=== PATIENT | male | born 1945 | race Caucasian/White ===

== ENCOUNTER 2017-10-24 08:12 | Day surgery (SDC) | payer OTHER ==
[2017-10-24] MEDS ORDERED: MIDAZOLAM 2 MG/2 ML VIAL IVP ONE (08:21)
[2017-10-24] MEDS ORDERED: ATROPINE SULFATE 1 MG/10 ML SYR IVP ONE (08:21)
[2017-10-24] MEDS ORDERED: BENZOCAINE UNIT DOSE SPRAY HURRICAINE MM ONE (08:21)
[2017-10-24] MEDS ORDERED: fentaNYL 100 MCG/2 ML INJ IVP ONE (08:21)
[2017-10-24] MEDS ORDERED: NS 500 ML IV ONE (08:21)
--- NOTE | 2017-10-24 08:38 | CPEKG ---
Heart Rate: 82 RR Interval: 732 QRSD Interval: 80 QT Interval: 376 QTC Interval: 439 QRS [place]: 13 T Wave [place]: 43 EKG Severity - ABNORMAL ECG - EKG Impression: ATRIAL FIBRILLATION, V-RATE 61-99 Electronically Signed By: Dayton Vaughan 24-Oct-2017 10:59:15
[2017-10-24 09:03] LABS: INR 1.48 (0.83-1.16); PROTIME(PATIENT) 18.1 SEC (12.0-15.0)
--- NOTE | 2017-10-24 09:18 | PDANEPAE ---
ANE History of Present Illness 72 yo for enrique/cv ANE Past Medical History - Cardiovascular History Hx Hypertension: Yes Hx Arrhythmias: Yes Hx Chest Pain: Yes Hx Coronary Artery / Peripheral Vascular Disease: Yes - Pulmonary History Hx Sleep Apnea: Yes ANE Review of Systems Review of Systems: - Exercise capacity METS (RN): 3 METS ANE Patient History - Allergies Allergies/Adverse Reactions: No Known Allergies Allergy (Unverified 12/03/13 07:18) - Home Medications Home medications: home medication list seen and reviewed - NPO status NPO Status: no food or drink >8 hours - Anes Hx Anes Hx: slow to awaken from anesthesia - Smoking Hx Smoking Status: Former smoker ANE Labs/Vital Signs - Labs Result Diagrams: 10/24/17 08:45 - Vital Signs Height: 6 ft 2.02 in Weight: 88.5 kg ANE Physical Exam - Airway Neck exam: FROM Mallampati Score: Class 2 Mouth exam: normal dental/mouth exam - Pulmonary Pulmonary: no respiratory distress - Cardiovascular Cardiovascular: regular rate and rhythym - ASA Status ASA Status: III ANE Anesthesia Plan Anesthesia Plan: GA with mask
[2017-10-24] MEDS ORDERED: PROPOFOL 200 MG/20 ML VIAL ONE (09:31)
--- NOTE | 2017-10-24 09:52 | PDHPUP ---
History & Physical Update H&P update statement: This history and physical update is based on an assessment of the patient which was completed after admission or registration (within 24 hours), but prior to the surgery/procedure. H&P update: H&P reviewed & patient examined, no change in patient's condition since H&P completed
--- NOTE | 2017-10-24 10:05 | PDTEE1 ---
MCKAYLA Cardioversion Procedure Procedure: electrical cardioversion Indications: atrial fibrillation Consent: signed and in chart Anticoagulation: other (Pradaxa) Procedural Details: Pads were placed in anterior-posterior position. MCKAYLA probe was advanced and standard images obtained. There is no evidence of left atrial or left atrial appendage thrombus. Synchronized cardioversion attempt #1: 200J Results: normal sinus rhythm Conclusions: successful MCKAYLA cardioversion
--- NOTE | 2017-10-24 10:25 | CPEKG ---
Heart Rate: 70 RR Interval: 857 P-R Interval: 208 QRSD Interval: 78 QT Interval: 400 QTC Interval: 432 P [place]: 34 QRS [place]: -4 T Wave [place]: 54 EKG Severity - NORMAL ECG - EKG Impression: SINUS RHYTHM Electronically Signed By: Dayton Vaughan 24-Oct-2017 10:59:05
--- NOTE | 2017-10-24 14:03 | ECHO ---
[email or web address] [place] [id number] Main: [phone] Fax: Transesophageal Echocardiography Name: FLAKO AYERS MR#: [id number] Study Date: 10/24/2017 Study Time: 09:32 AM Date of : 1945 Age: 72 year(s) Height: ( ) Weight: ( ) BSA: Gender: Male Examination: Indication: Pre Cardioversion Image Quality: Contrast: Requested by: Ricardo Ovalles Heart Rate: Rhythm: BP: / Procedure Staff College Administrator: Marshall Whitten RDCS Reading Physician: Ricardo Ovalles MD Requesting Provider: MCKAYLA Exam Details Conclusions: Limited transesophageal echo in this patient prior to cardioversion. Left atrial appendage is free of thrombus. The patient underwent successful cardioversion. Measurements: Chambers Valvular Assessment AV/MV Valvular Assessment TV/PV Normal Normal Normal Name Value Range Name Value Range Name Value Range Additional Measurements: Findings: Left Ventricle: Normal size left ventricle. No regional wall motion abnormality. Left Atrial Appendage: Good color flow doppler in the left atrial appendage. Mitral Valve: Mild to moderate mitral regurgitation. Exam Comments: Proceeded with successful elective DC cardioversion.. l1n Patient: FLAKO AYERS Study Date: 10/24/2017 Page 1 of 2 09:32 AM (No Signature Object) Patient: FLAKO AYERS Study Date: 10/24/2017 Page 2 of 2 09:32 AM [id number]
== END 2017-10-24 12:07 | disposition home or self-care (01) ==
LOC: FCATH 08:12
PROVIDERS: ATTEND Internal Medicine Cardiovascular Disease
DX: I48.1 Persistent atrial fibrillation (principal); I25.10 Atherosclerotic heart disease of native coronary artery without angina pectoris; E11.9 Type 2 diabetes mellitus without complications; I10 Essential (primary) hypertension; G47.33 Obstructive sleep apnea (adult) (pediatric); E78.00 Pure hypercholesterolemia, unspecified; I77.9 Disorder of arteries and arterioles, unspecified; Z87.891 Personal history of nicotine dependence
CPT/HCPCS: J0461; J2704

== ENCOUNTER → 2017-11-22 | Day surgery (SDC) | payer OTHER ==
[~2017-11-22] MED LIST: LIDOCAINE 1% 300 MG/30 ML SDV SC ONE
--- NOTE | 2017-11-22 14:35 | CPIP ---
[f rep st] INVASIVE CARDIAC PROCEDURE DATE OF PROCEDURE: 11/22/2017 PROCEDURE PERFORMED: [employer] Daniel Confirm implantation. INDICATION: The patient is 72 years old. He has a history of paroxysmal atrial fibrillation and rec ently has suffered several syncopal events. He is referred for implantation of a [facility] Daniel Confirm to help elucidate the etiology for his episodes of syncope. TECHNIQUE: Following informed consent and in the fasting state, the patient was brought to the CVC. He was prepped and draped in usual sterile fashion. The 4th intercostal space to the left of the st ernum was identified by landmarks. This was infiltrated with 2% lidocaine. Using a 15 blade, a 1 cm incision was made. The [facility] Daniel Confirm was then "injected" underneath the skin. Manual pressure w as used for hemostasis and 2 yvrose were used to close the skin. COMPLICATIONS: None. DISPOSITION: The patient will be recovered in the CVC and discharged home later today. He will foll ow up with me in the office next week to have his yvrose removed. /[id number]/MODL
== END | disposition home or self-care (01) ==
LOC: FCATH 10:33
PROVIDERS: ATTEND Internal Medicine Cardiovascular Disease
PROC: 0JH602Z Insertion of Monitoring Device into Chest Subcutaneous Tissue and Fascia, Open Approach (ICD-10-PCS; principal; 2017-11-22)
DX: R55 Syncope and collapse (principal); I48.0 Paroxysmal atrial fibrillation; I25.10 Atherosclerotic heart disease of native coronary artery without angina pectoris; I10 Essential (primary) hypertension; G47.33 Obstructive sleep apnea (adult) (pediatric); E78.00 Pure hypercholesterolemia, unspecified; E11.9 Type 2 diabetes mellitus without complications; Z99.81 Dependence on supplemental oxygen; Z85.46 Personal history of malignant neoplasm of prostate
CPT/HCPCS: C1764

== ENCOUNTER 2018-07-16 07:53 | Observation (INO) | payer OTHER ==
[2018-07-16] MEDS ORDERED: NS 1,000 ML IV ONE (07:56)
[2018-07-16] MEDS ORDERED: ceFAZolin 2 GM/DEXTROSE 100 ML IV ONE (07:56)
[2018-07-16] MEDS ORDERED: BACITRACIN IRRIGATION/NS 50,000 UNITS/1,000 ML BTL IRR ONE (07:56)
[2018-07-16 08:56] LABS: PLATELET COUNT 211 10^3/uL (150-400)
[2018-07-16 09:06] LABS: INR 1.08 (0.83-1.16); PROTIME(PATIENT) 14.2 SEC (12.0-15.0)
--- NOTE | 2018-07-16 09:33 | PDPROPOC ---
Sedation Plan of Care Sedation Plan of Care: vital signs stable, mental status noted, patient educated of risks, benefits, alternatives, patient can tolerate sedation ASA Classification: ASA 2 Planned drugs: fentanyl, midazolam Mallampati Score: Class 2 Mallampati Reference Image: Patient passed 3-3-2 rule?: Yes
[2018-07-16] MEDS ORDERED: IOPAMIDOL (ISOVUE-300) 50 ML VIAL ONE (09:43)
[2018-07-16] MEDS ORDERED: LIDOCAINE 1% 300 MG/30 ML SDV ONE (09:43)
[2018-07-16] MEDS ORDERED: LIDO/EPI 1% **for epidural** 30 ML SDV ONE (09:44)
[2018-07-16] MEDS ORDERED: fentaNYL 100 MCG/2 ML INJ ONE ×2 (09:44→09:50)
[2018-07-16] MEDS ORDERED: MIDAZOLAM 2 MG/2 ML VIAL ONE ×2 (09:44→09:50)
[2018-07-16] MEDS ORDERED: BUPIVACAINE 0.5% 30 ML SDV ONE (09:44)
--- NOTE | 2018-07-16 10:53 | SUROPNOTE ---
[facility] Operative Report - Surgery PERMANENT PACER IMPLANTATION PROCEDURE PERFORMED: (1) Fluoroscopy (2) PPM implant (3) Confirm explant COMPLICATIONS: None ESTIMATED BLOOD LOSS: <20 cc SITE: LEFT/RIGHT subclavian vein access. INDICATION: Symptomatic bradycardia with episodes of syncope PROCEDURE: The risks, benefits, and alternative of the procedure were all discussed with the patient and the patient's family in detail at great length. Overall options and precautions of the pacemaker and indications were all discussed. They agreed to the pacemaker. The consent was signed and placed in the chart. The patient was taken to the Cardiac Catheterization Lab, where she was monitored throughout the whole procedure. The patient was sterilely prepped and draped in the usual manner for permanent pacemaker insertion. Using a lidocaine the area of the LEFT subclavian vein and left pectodeltoid region was anesthetized locally. IV sedation, increments, and analgesics were given. Using a #18 gauge needle, the left subclavian vein access was cannulated without difficulty. A guidewire was then passed through the Cook needle and the Cook needle was then removed. The wire was secured in place with the hemostat. A second needle and cannulation was performed with a second guidewire was then passed through the Cook needle with removal of the Cook needle, and securing of the wire in place with the primary wire. Using a #10 and #15 scalpel blade, a 5 cm horizontal incision was made in the left pectoral deltoid region where the skin was dissected and blunted down into the pectoris major muscle fascia. The skin was then undermined used to make a pocket for the pacemaker. The guidewires were then tunneled through to the pacer pocket. Cordis sheath was then inserted through the guidewire. The guidewire and dilator were removed. A 7F cordis sheath was used for insertion of the ventricular screw and steroid diluted lead under fluoroscopy. It was placed into the septum/apex. The cordis sheath was then split apart and removed and after the ventricular lead was placed in its appropriate position and good thresholds were obtained, the lead was then sutured in place with #1-0 silk suture to the pectoris major muscle. The second Cordis sheath was then inserted through a guidewire. The guidewire and dilator were removed. The 7F cordis sheath used for the insertion of the atrial screw and steroid diluted lead under fluoroscopy. It was placed into the right atrium. The cordis sheath was then split apart and revoved and after the atrial lead was placed in its appropriate position and good thresholds were obtained, the lead was then sutured in place with #1-0 silk suture to the pectoris major muscle. The lead was then connected on pulse generator. The pocket was then irrigated and cleansed. Pulse generator and the wire was then inserted into the pocket, and sutured into position. The deep pocket (initial suture) was then closed with #2-0 suture. An intermediate, running suture (#3-0 ) was placed, and finally, the skin was closed with #4-0 sutures using a subcuticular uninterrupted technique. The area was then cleansed and dried. Steri-Strips and pressure dressing was then applied. The patient tolerated the procedure well. There were no complications. Settings on the pacemaker: DDDR 60/130 IMPLANT DEVICE: Favim MRI 2272 Pacemaker VENTRICLE LEAD: SJM Tendril STS 2088TC/58 S#[id number] Capture: 0.2V @ 0.5 ms, 0.4 mA; 8.3 mV, 2.1 V/s; Imp: 611 ohms ATRIAL LEAD: SJM Tendril STS 2088TC/52 S#[id number] Capture: 1.3V @ 0.5 ms, 0.0 mA; 1.5 mV, 0.5 V/s; Imp: 519 ohms The patient tolerated the procedure well. There was no complications. The patient went to recovery in stable condition. Chest x-ray will be ordered. Thank you for allowing me to participate in her care. If you have any questions or concerns, please feel free to contact
--- NOTE | 2018-07-16 12:05 | CPEKG ---
Test Reason : OPEN Blood Pressure : / mmHG Vent. Rate : 078 BPM Atrial Rate : 079 BPM P-R Int : 253 ms QRS Dur : 086 ms QT Int : 373 ms P-R-T Axes : 072 030 065 degrees QTc Int : 425 ms Sinus rhythm Prolonged ME interval Confirmed by Vel Parker ([id number]) on 07/16/2018 12:05:32 PM Referred By: Confirmed By:Vel Parker
--- NOTE | 2018-07-16 12:29 | CPEKG ---
Test Reason : OPEN Blood Pressure : / mmHG Vent. Rate : 069 BPM Atrial Rate : 069 BPM P-R Int : 257 ms QRS Dur : 090 ms QT Int : 398 ms P-R-T Axes : 045 004 045 degrees QTc Int : 427 ms Sinus rhythm Prolonged MN interval Confirmed by Vel Parker ([id number]) on 07/16/2018 12:29:10 PM Referred By: Confirmed By:Vel Parker
[2018-07-16] MEDS: CARVEDILOL 6.25 MG TAB PO SCH (17:57)
--- NOTE | 2018-07-16 20:43 | GCON ---
INTERNAL MEDICINE CONSULTATION DATE OF CONSULTATION: 07/16/2018 REFERRING PHYSICIAN: Wesley Sanders MD REASON FOR CONSULTATION: Medical opinion regarding medical issues status post pacemaker placement. HISTORY OF PRESENT ILLNESS: The patient is a 72-year-old male with a history of symptomatic bradycar ricki with syncope and had a pacemaker placed by Dr. Sanders today. The patient reports having syncopal episodes 3 times in the last year. He had a LINQ monitor placed last . He had another even t, and the LINQ monitor showed significant bradycardia, so he is now presenting for pacemaker. He de scribes the syncopal events as being very sudden onset, he will go from just standing feeling complet kecia normal to being collapsed and passed out on the ground. There was no significant injury. He is currently post pacemaker doing well without any complaints. He denies any chest pain or shortness of breath. PAST MEDICAL HISTORY: 1. Atrial fibrillation. 2. Hypertension. 3. Obstructive sleep apnea, CPAP intolerance. 4. Nonobstructive coronary artery disease. 5. Hyperlipidemia. 6. Diabetes type 2. 7. Hoskins's esophagus. 8. Congestive heart failure secondary to diastolic dysfunction. 9. Prostate cancer status post prostatectomy. PAST SURGICAL HISTORY: Cholecystectomy. MEDICATIONS: Please see computer record for full detailed list. ALLERGIES: No known drug allergies. SOCIAL HISTORY: Quit smoking 20 years ago. 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 He lives with his . He is retired from [employer]. REVIEW OF SYSTEMS: Complete review of systems obtained. Review of systems negative regarding consti tutional, HEENT, GI, pulmonary, cardiovascular, , hematology, endocrine, psych, except for positive s as in HPI. FAMILY HISTORY: Reviewed, noncontributory to presenting complaint. PHYSICAL EXAMINATION: GENERAL APPEARANCE: Well-developed, well-nourished male, in no acute distress . VITAL SIGNS: Temperature is 36.6, pulse 67, blood pressure 160/86, saturating 93% on room air. E YES: Normal conjunctivae. Pupils reactive to light. ENT: Normal ears, nose. Hearing intact. Nor mal teeth. Oropharynx moist. NECK: Trachea midline. No thyromegaly. CHEST: Normal respiratory e ffort. Lungs clear to auscultation bilaterally. CARDIOVASCULAR: Regular rhythm. No murmur. No ex tremity edema. ABDOMEN: Soft, nontender. No hepatosplenomegaly. SKIN: Warm, dry, intact. No beatriz h. MUSCULOSKELETAL: No cyanosis or clubbing. Strength 5/5 upper and lower extremities. NEUROLOGIC : Cranial nerves intact. Normal sensation to light touch. PSYCHIATRIC: Alert and oriented x3. No rmal affect. Normal judgment. Normal insight. Normal memory. DIAGNOSTIC DATA: White count 8.27, hematocrit 32.4, platelets 211, MCV is 67.8. Sodium 140, potassi um 4.4, chloride 104, bicarbonate 25, BUN 14, creatinine 1.0, glucose 141. LFTs are negative. INR i s 1.08. EKG viewed by me and my personal interpretation is normal sinus rhythm with prolonged CO. C hest x-ray shows pacemaker in place. There is a widened upper mediastinum. MEDICAL RECORD REVIEW: I reviewed old medical records including previous outpatient records from the cardiology office. They were summarized above. ASSESSMENT AND PLAN: 1. Symptomatic bradycardia status post pacemaker. He will be observed this evening and if all remai ns stable could go home tomorrow morning per Cardiology. 2. Anemia. He says this was recently discovered by his primary care only about a week ago, and he h as not yet received outpatient evaluation. I will check iron studies in the morning. He is up to da td on colonoscopy having his last colonoscopy February of this year. He also has a history of Hoskins's and is on a proton pump inhibitor. He reports his last esophagogastroduodenoscopy was 2 years ago. His primary care doctor has told him he will likely refer him back to Gastroenterology. 3. Widened mediastinum. PA and lateral chest x-ray is pending. Could consider CT scan of the chest if there is further concern. 4. Diabetes type 2. Continue metformin. 5. Obstructive sleep apnea. He is continuous positive airway pressure therapy intolerant. 6. Chronic diastolic congestive heart failure. We will continue Coreg, Avapro, and hydrochlorothiaz merlin. Thank you very much for this consultation. Internal Medicine will continue to follow. /[id number]/MODL
[2018-07-16] MEDS ORDERED: PRAVASTATIN SODIUM 40 MG TAB PO SCH (21:00)
[2018-07-17 04:10] LABS: PLATELET COUNT 210 10^3/uL (150-400)
[2018-07-17] MEDS: CARVEDILOL 6.25 MG TAB PO SCH (06:17)
[2018-07-17] MEDS ORDERED: IRBESARTAN 150 MG TAB PO SCH (09:00)
[2018-07-17] MEDS ORDERED: HYDROCHLOROTHIAZIDE 12.5 MG CAP PO SCH (09:00)
[2018-07-17] MEDS ORDERED: PANTOPRAZOLE SODIUM 40 MG TAB PO SCH (09:00)
--- NOTE | 2018-07-17 10:55 | HOSPPROG ---
Hospitalist Progress Note Assessment/Plan: 72yo M admitted for monitoring after pacemaker insertion. Medicine consulted for evaluation of widened mediastinum on post-procedure chest x-ray. 1. Widened mediastinum: This was seen on portable AP x-ray with some rotation. Repeat 2 view film today does not demonstrate significant widening by my read. Additionally, penetration is such that I can visualize a good portion of the descending aorta which looks normal. Also, TTE from 09/2017 shows normal aortic root and ascending aorta size. Overall low concern that this was a significant finding and do not see need for chest CT. - Await formal radiology read on CXR 2. Iron deficiency anemia with severe microcytosis: New since 2016. Patient reports episode of GIB 02/2018 (not at this hospital) at which time he had upper and lower endoscopies. A bit unclear what was found but he reports not needing another colonoscopy for 5 years. His iron studies show rather significant deficiency so he is likely having slow blood loss from somewhere. He currently denies any GI bleeding, epistaxis, hematuria. - Start FeSO4 325mg 1 tablet daily, advised to monitor for constipation and increase to 2 tablets daily if tolerating - I discussed with him that he needs to see his PCP within the next 4 weeks to address this and likely referral back to GI 3. Symptomatic bradycardia s/p pacemaker: CXR without pneumothorax. 4. Type 2 diabetes: On metformin. 5. KADI: Uses CPAP 6. Chronic diastolic CHF: Compensated. Continue home meds Ok to discharge from medicine stand point with above recommendations pending final read on CXR. Subjective: Feeling well. Minimal pain at pacemaker insertion site. No shortness of breath. Objective: Vital Signs Temp Pulse Resp BP Pulse Ox 36.3 C 77 21 H 179/102 H 93 07/17/18 08:00 07/17/18 08:00 07/17/18 08:00 07/17/18 08:30 07/17/18 08:00 Laboratory Results 07/17/18 03:31 07/17/18 03:31 07/16/18 07/17/18 07/18/18 05:59 05:59 05:59 Intake Total 1490 Output Total 700 Balance 790 PT 14.2 SEC (12.0-15.0) 07/16/18 08:10 INR 1.08 (0.83-1.16) 07/16/18 08:10 - Physical Exam Constitutional: no apparent distress, appears nourished, not in pain Eyes: PERRL, anicteric sclera, EOMI Ears, Nose, Mouth, Throat: moist mucous membranes, hearing normal, ears appear normal, no oral mucosal ulcers Cardiovascular: regular rate and rhythym, no murmur, rub, or gallop, No JVD, No edema Respiratory: no respiratory distress, no rales or rhonchi, clear to auscultation Gastrointestinal: normoactive bowel sounds, soft, non-tender abdomen, no palpable masses Genitourinary: no bladder fullness, no bladder tenderness, no renal bruits Skin: other (left chest pacemaker incision c/d/i) Musculoskeletal: full muscle strength, no muscle tenderness, normal joint ROM, other (left arm in sling) Neurologic: AAOx3, sensation intact bilaterally Psychiatric: interacting appropriately, not anxious, not encephalopathic, thought process linear ICD10 Worksheet Patient Problems: Problems Problem Status Onset Iron deficiency anemia Acute - ICD10 Problem Qualifiers (1) Iron deficiency anemia
--- NOTE | 2018-07-17 10:59 | PDCARPN ---
Cardiology Progress Note Chief Complaint: POD#1 for PPM implant for SSS Assessment/Plan: Assessment: Patient is a 72 y/o HTN, HLP, KADI with CPAP, DM, and CHF history with symptomatic bradycardia noted on Confirm monitor. Confirm was explanted and PPM was implanted yesterday without complications. No symptoms were reported this morning. No pain or tenderness to the site. CXR without pneumothorax appreciated. Yesterday's CXR with "widening of the mediastinum" and hospitalist team was consulted. Pacer interrogation this morning with normal function. Plan: (1) From a cardiovascular perspective, the patient can be discharged - would plan on outpatient follow up with cardiology in one week (2) Resumption of outpatient medications (3) Would await hospitalist input prior to discharge Subjective: No cardiovascular complaints Reviewed/Discussed With: hospitalist Objective: Vital Signs (8 Hrs) Temp Pulse Resp BP Pulse Ox 07/17/18 08:30 179/102 H 07/17/18 08:29 179/102 H 07/17/18 08:00 36.3 C 77 21 H 148/81 H 93 07/17/18 06:17 82 179/102 H 07/17/18 05:55 179/102 H 07/17/18 04:00 36.8 C 82 18 178/98 H 97 Intake/Output (24 Hrs) 07/16/18 07/17/18 07/18/18 05:59 05:59 05:59 Intake Total 1490 Output Total 700 Balance 790 Intake: Oral (ml) 1040 IV Intake (ml) 450 Output: Urine (ml) 700 Urinal 700 Other: Weight 93 kg Number of Voids Toilet 1 Urinal 1 Number of Stools Toilet 1 Result Diagrams: 07/17/18 03:31 07/17/18 03:31 Telemetry: Atrial paced rhythm - Physical Exam Constitutional: WDWN, healthy appearing, no apparent distress Eyes: PERRL, EOMI Ears, Nose, Mouth, Throat: moist mucous membranes Cardiovascular: regular rate and rhythm, No jugular vein distention Peripheral Pulses: 2+: dorsalis-pedis (R), dorsalis-pedis (L) Respiratory: clear to auscultate bilat, no crackles, no wheezes Gastrointestinal: normoactive bowel sounds Skin: no rashes, no edema Musculoskeletal: no muscular tenderness Neurologic: AAOx3, CN II-XII grossly intact Psychiatric: cooperative, interactive, following commands ICD10 Worksheet Patient Problems: Problems Problem Status Onset Iron deficiency anemia Acute
[2018-07-17] MEDS ORDERED: CARVEDILOL 6.25 MG TAB PO ONE (11:53)
[2018-07-17 11:55] VITALS: BP 157/101
--- NOTE | 2018-07-17 12:02 | ASMTLACE ---
TEZ Length of stay for Answers: 1 day current admission Acuity / Level of Answers: No Care: Did the patient have an inpatient admission? Comorbidities - select Answers: Congestive heart failure all that apply Other Notes: HTN; Hx of prostate cancer # of Emergency department Answers: 0 visits in the last 6 months Social determinants Answers: History of substance abuse (ETOH, street drugs, prescription drugs, etc.) Score: 7 Date Signed: 07/17/2018 12:01 PM Electronically Signed By:Indiana Marie RN
--- NOTE | 2018-07-17 12:05 | ASDISCHSUM ---
Discharge Information Plan Status:Home with No Needs Medically Cleared to Leave:07/16/2018 Discharge Date:07/16/2018 CM D/C Disposition:Home, Routine, Self-Care ADT D/C Disposition:Home, Routine, Self-Care Projected Discharge Date:07/16/2018 Transportation at D/C:Family Discharge Delay Reason: Follow-Up Date:07/16/2018 Discharge Slot: Final Diagnosis: Placement Information Patient Contact Information Contact Name:EFREN Relationship: Address:[address] Work Phone: City:[place] Alternate Phone: State/Zip Code:[place] [address] Email: Financial Information Financial Class:Medicare Advantage Plans Primary Plan Desc:RHIANNA LIN PPO MEDICARE Primary Plan Number:[id number] Secondary Plan Desc: Secondary Plan Number: Assessment Information LACE LACE Length of stay for Answers: 1 day current admission Acuity / Level of Answers: No Care: Did the patient have an inpatient admission? Comorbidities - select Answers: Congestive heart failure all that apply Other Notes: HTN; Hx of prostate cancer # of Emergency department Answers: 0 visits in the last 6 months Social determinants Answers: History of substance abuse (ETOH, street drugs, prescription drugs, etc.) Score: 7 Date Signed: 07/17/2018 12:01 PM Electronically Signed By:Indiana Marie RN Case Management Discharge Plan Note Case Management Discharge Discharge Order Complete? Answers: Yes Patient to Obtain Answers: via Family Medications Transportation Arranged Answers: Family/Friends Discharge Comments Notes: 07/17/2018 Case Management Note Reviewed pt with MAURO. Pt lives with his and was independent in ADL's prior to admission. There are no therapies ordered. No discharge needs identified for case management. Case Management d/c poc: independent with follow up as directed. Date Signed: 07/17/2018 12:04 PM Electronically Signed By:Indiana Marie RN Intervention Information
--- NOTE | 2018-07-17 14:43 | GDS ---
DISCHARGE DIAGNOSES: 1. Sinus bradycardia with rates of 20, with associated syncope, status post dual-chamber St. Daniel pacemaker. 2. Paroxysmal atrial fibrillation. 3. Hypertension. 4. Coronary artery disease, non-flow limiting. 5. Hyperlipidemia. 6. Diabetes type 2. HOSPITAL COURSE: For a detailed H and P, please see prior dictation. Briefly, the patient is a 72-year-old male with a history of syncope, who had a loop recorder placed. He was identified to have heart rates in the 20s with associated syncope. Ultimately, the decision was made to proceed with pacemaker placement. This was done by Dr. Wesley Sanders on July 16, 2018. He had a dual-chamber St. Daniel device placed. The procedure was uncomplicated. The following day, the patient denied any discomfort over his pacer site. He was monitored on telemetry and remained in sinus rhythm with PVCs. His EKG the day of discharge revealed a normal sinus rhythm. His device was interrogated and working properly. His chest x-ray post pacer placement showed a wide superior mediastinum. The chest x-ray was repeated the following morning with similar findings. Consider CT of the chest for further assessment. Dr. Milligan with the hospitalist group was consulted for further recommendations in regard to his abnormal chest x-ray and widened mediastinum, as well as anemia. His H and H are currently 9.1 and 32.1. Iron studies were done, showing an iron level of 23, total iron- binding capacity of 343, iron saturation of 7, and ferritin of 7.5. The patient had a colonoscopy within the last 6 months without any significant abnormalities. He was hypertensive throughout his hospitalization. His medications have been adjusted recently secondary to his bradycardia. Coreg was increased during his hospitalization. PHYSICAL EXAMINATION: GENERAL: Patient appears in no acute distress. VITALS: Blood pressure 157/101, heart rate 74, oxygen saturation 96% on room air. Afebrile. LUNGS: Clear to auscultation. No wheezes, rhonchi, or crackles auscultated. CARDIAC: Regular rate and rhythm, without any significant murmurs , rubs, or gallops appreciated. CHEST WALL: Pacer site is clean and intact, without any evidence of infection or hematoma. DISCHARGE MEDICATIONS: Coreg has been adjusted to 12.5 mg b.i.d. He can resume Pradaxa 150 mg b.i.d. this evening. He will continue Protonix 40 mg daily, fish oil 1000 mg daily, metformin 500 mg b.i.d., Pravachol 80 mg at bedtime, Avapro 300 mg daily, and hydrochlorothiazide 12.5 mg daily. Iron 325 mg was also recommended. PLAN: The patient is currently stable and ready for discharge home. He has been given pacer precautions. He will follow up for his pacer interrogation and wound check on July 23 at 11 a.m. His chest x-ray suggests widened mediastinum. He will follow up with his primary care doctor to consider further assessment with a CTA of the chest. He will also follow up in regard to his anemia. His blood pressure has been elevated throughout his hospitalization. Coreg was increased just before discharge to 12.5 mg b.i.d. He will keep a blood pressure log and follow up in our office as scheduled. Greater then 30 minutes was spent coordinating the patients care today. /[id number]/MODL MTDD
--- NOTE | 2018-07-17 16:37 | CPEKG ---
Test Reason : OPEN Blood Pressure : / mmHG Vent. Rate : 071 BPM Atrial Rate : 071 BPM P-R Int : 253 ms QRS Dur : 089 ms QT Int : 394 ms P-R-T Axes : 062 029 058 degrees QTc Int : 429 ms Sinus rhythm Prolonged [place] interval Confirmed by Vel Parker ([id number]) on 07/17/2018 4:37:20 PM Referred By: Confirmed By:Vel Parker
[2018-07-18] MEDS ORDERED: metFORMIN HCL 500 MG TAB PO SCH (18:00)
== END 2018-07-17 13:04 | disposition home or self-care (01) ==
LOC: FCATH 07:53 → F3E 10:54 → F2W 12:33
PROVIDERS: ADMIT Internal Medicine Cardiovascular Disease; ATTEND Internal Medicine Cardiovascular Disease
DX: I49.5 Sick sinus syndrome (principal); I48.0 Paroxysmal atrial fibrillation; I11.0 Hypertensive heart disease with heart failure; I25.10 Atherosclerotic heart disease of native coronary artery without angina pectoris; R93.89 Abnormal findings on diagnostic imaging of other specified body structures; D64.9 Anemia, unspecified; I50.32 Chronic diastolic (congestive) heart failure; E78.5 Hyperlipidemia, unspecified; E11.9 Type 2 diabetes mellitus without complications; G47.33 Obstructive sleep apnea (adult) (pediatric); K22.70 Barrett's esophagus without dysplasia; F10.21 Alcohol dependence, in remission; Z87.891 Personal history of nicotine dependence; Z85.46 Personal history of malignant neoplasm of prostate
CPT/HCPCS: 33208; 71045; 71046; 93005; C1785; C1898; G0378; J0690; J2250; J3010; Q9967

== ENCOUNTER → 2018-10-23 | Day surgery (SDC) | payer OTHER ==
[~2018-10-23] MED LIST changes: +ATROPINE SULFATE 1 MG/10 ML SYR IVP ONE; -LIDOCAINE 1% 300 MG/30 ML SDV SC ONE; +LIDOCAINE 2% 2 ML INJ ONE; +MIDAZOLAM 2 MG/2 ML VIAL IVP ONE; +NS 500 ML IV ONE; +PROPOFOL/EMULSION 500 MG/50 ML BOTTLE IV ONE; +fentaNYL 100 MCG/2 ML INJ IVP ONE
[2018-10-23 09:21] LABS: INR 1.64 (0.83-1.16); PROTIME(PATIENT) 18.7 SEC (12.0-15.0)
--- NOTE | 2018-10-23 10:03 | POSTANESTH ---
Post Anesthetic Evaluation Cardiovascular Status: Normal, Stable Respiratory Status: Normal, Stable Level of Consciousness/Mental Status: Can Participate in Eval Pain Control: Adequate, Prn Tx Ordered Nausea/Vomiting Control: Adequate, Prn Tx Ordered Complications Possibly Related to Anesthesia: None Noted
--- NOTE | 2018-10-23 10:03 | PDANEPAE ---
ANE Past Medical History - Cardiovascular History Hx Hypertension: Yes Hx Arrhythmias: Yes Hx Chest Pain: Yes Hx Coronary Artery / Peripheral Vascular Disease: Yes - Pulmonary History Hx Oxygen in Use at Home: No Hx Sleep Apnea: Yes - Endocrine History Hx Diabetes: No - Renal History Hx Renal Disorders: No - Liver History Hx Hepatic Disorders: No - Neurological & Psychiatric Hx Hx Neurological and Psychiatric Disorders: No - GI History GERD: no Hx Gastrointestinal Disorders: No - Other Health History Other Health History: Anemia - Chronic Pain History Chronic Pain: No ANE Review of Systems Review of Systems: ANE Patient History - Allergies Allergies/Adverse Reactions: No Known Allergies Allergy (Verified 07/15/18 09:50) - Home Medications Home Medications: Dabigatran Etexilate Mesyl [Pradaxa 150 MG (*)] 150 mg PO BID 07/15/18 [Last Taken 07/13/18 07:00] Hydrochlorothiazide [HCTZ (*)] 12.5 mg PO DAILY 07/15/18 [Last Taken 07/15/18 07 :00] Irbesartan [Avapro] 300 mg PO DAILY 07/15/18 [Last Taken 07/16/18 07:00] [place]-3 Fatty Acids [Fish Oil 1000 mg (*)] 1,000 mg PO DAILY 07/15/18 [Last Taken 07/15/18 07:00] Pantoprazole Sodium [Protonix 40mg (*)] 40 mg PO DAILY 07/15/18 [Last Taken 11/28 07:00] Pravastatin Sodium [Pravachol] 80 mg PO HS 07/15/18 [Last Taken 07/15/18 19:00] metFORMIN HCL [Glucophage 500 mg (*)] 500 mg PO BIDMEAL 07/15/18 [Last Taken 10/28 19:00] - Smoking Hx Smoking Status: Former smoker ANE Labs/Vital Signs - Labs Result Diagrams: 10/23/18 09:05 - Vital Signs Height: 185.42 cm Weight: 90.718 kg ANE Physical Exam - Airway Neck exam: FROM Mallampati Score: Class 2 Mouth exam: normal dental/mouth exam, poor dentition - Pulmonary Pulmonary: no respiratory distress, no rales or rhonchi, clear to auscultation - Cardiovascular Cardiovascular: regular rate and rhythym, no murmur, rub, or gallop - ASA Status ASA Status: III ANE Anesthesia Plan Anesthesia Plan: GA with mask Total IV Anesthesia: Yes
--- NOTE | 2018-10-25 19:04 | CPEKG ---
Test Reason : OPEN Blood Pressure : / mmHG Vent. Rate : 080 BPM Atrial Rate : 127 BPM P-R Int : 154 ms QRS Dur : 098 ms QT Int : 389 ms P-R-T Axes : 000 020 092 degrees QTc Int : 449 ms Atrial fibrillation Nonspecific repol abnormality, diffuse leads Voltage criteria for LVH Confirmed by Herson Nash ([id number]) on 10/25/2018 7:03:31 PM Referred By: Ricardo Ovalles Confirmed By:Herson Nash
== END | disposition home or self-care (01) ==
LOC: FCATH 08:39
PROVIDERS: ATTEND Internal Medicine Cardiovascular Disease
PROC: 5A2204Z Restoration of Cardiac Rhythm, Single (ICD-10-PCS; principal; 2018-10-23)
DX: I48.0 Paroxysmal atrial fibrillation (principal); I25.10 Atherosclerotic heart disease of native coronary artery without angina pectoris; R55 Syncope and collapse; I10 Essential (primary) hypertension; E78.5 Hyperlipidemia, unspecified; G47.33 Obstructive sleep apnea (adult) (pediatric); E11.9 Type 2 diabetes mellitus without complications; D64.9 Anemia, unspecified; Z95.0 Presence of cardiac pacemaker
CPT/HCPCS: J0461; J2704

== ENCOUNTER 2018-11-21 07:31 | Day surgery (SDC) | payer OTHER ==
[2018-11-21] MEDS ORDERED: diphenhydrAMINE 25 MG CAP PO ONE ×2 (07:37→07:38)
[2018-11-21] MEDS ORDERED: DIAZEPAM 5 MG TAB PO ONE (07:37)
[2018-11-21] MEDS ORDERED: NS 1,000 ML IV ONE ×2 (07:37→09:02)
[2018-11-21] MEDS ORDERED: FAMOTIDINE 20 MG TAB PO ONE (07:37)
[2018-11-21] MEDS ORDERED: ASPIRIN EC 325 MG TAB PO ONE ×2 (07:37→07:39)
[2018-11-21] MEDS ORDERED: DIAZEPAM 5 MG TAB ONE (07:39)
[2018-11-21] MEDS ORDERED: FAMOTIDINE 20 MG TAB ONE (07:39)
[2018-11-21 08:14] LABS: PLATELET COUNT 168 10^3/uL (150-400)
[2018-11-21 08:23] LABS: INR 1.14 (0.83-1.16); PROTIME(PATIENT) 14.1 SEC (12.0-15.0)
[2018-11-21] MEDS ORDERED: LIDOCAINE 1% 300 MG/30 ML SDV ONE (08:46)
[2018-11-21] MEDS ORDERED: VERAPAMIL 5 MG/2 ML VIAL ONE (08:46)
[2018-11-21] MEDS ORDERED: fentaNYL 100 MCG/2 ML INJ ONE ×2 (08:46→09:54)
[2018-11-21] MEDS ORDERED: HEPARIN 10,000 UNIT/10 ML MDV (1,000 UNIT/ML) ONE (08:46)
[2018-11-21] MEDS ORDERED: MIDAZOLAM 2 MG/2 ML VIAL ONE ×2 (08:46→09:54)
[2018-11-21] MEDS ORDERED: IOPAMIDOL (ISOVUE-370) 150 ML BTL IV ONE (08:47)
--- NOTE | 2018-11-21 08:58 | PDPROPOC ---
Sedation Plan of Care Sedation Plan of Care: vital signs stable, mental status noted, patient educated of risks, benefits, alternatives, patient can tolerate sedation ASA Classification: ASA 2 Planned drugs: fentanyl, midazolam Mallampati Score: Class 1 Mallampati Reference Image: Patient passed 3-3-2 rule?: Yes
[2018-11-21] MEDS ORDERED: ATROPINE SULFATE 1 MG/10 ML SYR IVP PRN (10:28)
[2018-11-21] MEDS ORDERED: ONDANSETRON 4 MG/2 ML VIAL IVP PRN (10:28)
[2018-11-21] MEDS ORDERED: OXYCODONE/APAP 5/325 TAB PO PRN (10:28)
[2018-11-21] MEDS ORDERED: NITROGLYCERIN 0.4 MG BTL SL PRN (10:28)
[2018-11-21] MEDS ORDERED: HYDROCODONE/APAP 5/325 TAB PO PRN (10:28)
--- NOTE | 2018-11-21 10:37 | PDDXCAT ---
Diagnostic Cath Note - . Date: 11/21/18 Radio Time Sales Supervisor: Josr Indication: other (Intermediate risk nuclear stress test. Symptoms of exertional dyspnea. Moderate to severe mitral regurgitation. Consideration for cardiovascular surgery.) - Materials Left Heart Cath materials: JL3.5, JR4.0, pigtail - Findings-Left Heart Catheterization LM: Large caliber vessel. Bifurcates in the left anterior descending and circumflex distributions. Angiographically free of disease. LAD: Large caliber transapical vessel. 2 diagonal branches identified. There is an aneurysmal segment in the mid vessel. The 2nd diagonal originates from this at aneurysmal segment and contains an ostial 70% lesion. LCX: Moderate caliber vessel. Large 1st obtuse marginal branch that originates very proximally. There is an ostial 50% lesion in this vessel. RCA: Large caliber vessel. The PDA and 2 posterolateral branches are identified. Luminal irregularities with no obstructive lesions. LVEF: Low normal. Mild global hypokinesis. 50-55%. Wall motion: Mild global hypokinesis. Complications: None. Estimated blood loss: <50ml Closure method: TR Band Assessment: 1. Branch vessel CAD as described above. 2. Moderate to severe mitral regurgitation. 3. Low normal ejection fraction. 4. Paroxysmal atrial fibrillation. Plan: Will refer the patient to Cardiovascular surgery regarding consideration for mitral valve repair and Jiménez Maze 4. Patient Problems: Problems Problem Status Onset Iron deficiency anemia Acute
[2018-11-21 14:37] VITALS: BP 143/97
--- NOTE | 2018-11-21 19:40 | CPEKG ---
Test Reason : OPEN Blood Pressure : / mmHG Vent. Rate : 071 BPM Atrial Rate : 306 BPM P-R Int : 160 ms QRS Dur : 105 ms QT Int : 417 ms P-R-T Axes : 000 002 087 degrees QTc Int : 454 ms Afib/flut and V-paced complexes Confirmed by Filiberto Matthew ([id number]) on 11/21/2018 7:39:36 PM Referred By: Ricardo Ovalles Confirmed By:Filiberto Matthew
--- NOTE | 2018-11-22 11:13 | ECHO ---
[email or web address] [address] [address] Main: [phone] Echocardiography Examination Transesophageal Name: FLAKO AYERS MR#: [id number] Study Date: 11/21/2018 Study Time: 09:32 AM Date of : 1945 Age: 73 year(s) Height: 185.4 cm (73 in.) Weight: 90.72 kg (200 lb.) BSA: 2.15 m2 Gender: Male Examination: MCKAYLA Contrast: Image Quality: Adequate Rhythm: Heart Rate: BP: / Indication: Evaluate MR Procedure Staff Referring Physician: Machine Sign Writer: Julee Waldron RDCS Reading Physician: Ricardo Ovalles MD Requesting Provider: Ordering Physician: Ricardo Ovalles MD Indication: Evaluate MR Acute complication: None Conclusions The patient was in atrial fibrillation at the time of the study. Normal left ventricular size with low normal LV systolic function. The ejection fraction is estimated at 50% with mild global hypokinesis. There are no segmental wall motion abnormalities. Severe left atrial enlargement. Moderate right atrial enlargement. Intact interatrial septum. Left atrial appendage is free of thrombus. Normal appearing mitral leaflets with mild mitral annular calcification. The annulus appears to be mildly dilated. There is moderate to severe central mitral regurgitation. Trileaflet aortic valve. No stenosis or insufficiency. Normal appearing tricuspid valve with mild tricuspid regurgitation. Findings Left Ventricle: Left ventricle is normal in size. Mildly reduced systolic left ventricular function. EF range is estimated at 40 % - 50 %. Right Ventricle: Normal size right ventricle. Right ventricular systolic function is normal. Left Atrium: The left atrium is severely dilated. Left Atrium Appendage: Normal PW-Doppler flow pattern. Good color flow doppler in the left atrial appendage. No thrombus is identified. IAS: Normal appearing atrial septum. Mitral Valve: Mitral valve appears structurally normal. Moderate to severe mitral regurgitation. There is mild mitral calcification. There Patient: FLAKO AYERS Study Date: 11/21/2018 Page 1 of 2 09:32 AM is mild mitral annular calcification. Aortic Valve: Aortic leaflets are structurally normal. No significant aortic valve regurgitation. Tricuspid Valve: Tricuspid valve leaflets are structurally normal. Mild tricuspid regurgitation. Pulmonic Valve: Pulmonic leaflets are structurally normal. Trivial pulmonic valve regurgitation is present. Aorta: Descending aorta is normal in size. Pericardium: No pericardial effusion. Exam Details Procedure Ordered: MCKAYLA Procedure Status: Routine study Image Quality: Adequate Consent: Risks, alternatives of procedure explained to patient, informed consent obtained Probe Insertion: Attending band saw marker Facility Location: [facility] (No Signature Object) Patient: FLAKO AYERS Study Date: 11/21/2018 Page 2 of 2 09:32 AM [id number]
== END 2018-11-21 14:37 | disposition home or self-care (01) ==
LOC: FCATH 07:31
PROVIDERS: ATTEND Internal Medicine Cardiovascular Disease
PROC: B2111ZZ Fluoroscopy of Multiple Coronary Arteries using Low Osmolar Contrast (ICD-10-PCS; principal; 2018-11-21)
PROC: B245ZZ4 Ultrasonography of Left Heart, Transesophageal (ICD-10-PCS; principal; 2018-11-21)
PROC: 4A023N7 Measurement of Cardiac Sampling and Pressure, Left Heart, Percutaneous Approach (ICD-10-PCS; principal; 2018-11-21)
PROC: B2151ZZ Fluoroscopy of Left Heart using Low Osmolar Contrast (ICD-10-PCS; principal; 2018-11-21)
DX: I34.0 Nonrheumatic mitral (valve) insufficiency (principal); I48.0 Paroxysmal atrial fibrillation; I25.10 Atherosclerotic heart disease of native coronary artery without angina pectoris; I10 Essential (primary) hypertension; E78.5 Hyperlipidemia, unspecified; G47.33 Obstructive sleep apnea (adult) (pediatric); E11.9 Type 2 diabetes mellitus without complications; I49.5 Sick sinus syndrome; Z79.01 Long term (current) use of anticoagulants
CPT/HCPCS: C1769; J1644; J2250; J3010; Q9967

== ENCOUNTER → 2018-12-17 | Outpatient (CLI) | payer OTHER | LOC: FIMAGING 09:13 | PROVIDERS: ATTEND Thoracic Surgery (Cardiothoracic Vascular Surgery) | DX: Z01.818 Encounter for other preprocedural examination (principal); I25.10 Atherosclerotic heart disease of native coronary artery without angina pectoris; I34.0 Nonrheumatic mitral (valve) insufficiency; I48.91 Unspecified atrial fibrillation ==

== ENCOUNTER 2018-12-20 05:33 | Inpatient (IN) | payer OTHER ==
[2018-12-20] MEDS ORDERED: NOREPINEPHRINE BITARTRATE 16 MG in NS 250 ML IV ONE (06:00)
[2018-12-20] MEDS ORDERED: VERAPAMIL 5 MG, NITROGLYCERIN 2.5 MG, HEPARIN 500 UNIT, SODIUM BICARBONATE 0.2 MEQ in L... MISC ONE (06:00)
[2018-12-20] MEDS ORDERED: PHENYLEPHRINE HCL 50 MG in NS 250 ML IV ONE (06:00)
[2018-12-20] MEDS ORDERED: PAPAVERINE HCL 60 MG, VERAPAMIL 5 MG in SYRINGE 0 ML IV ONE (06:00)
[2018-12-20] MEDS ORDERED: MANNITOL 25% 12.5 GM/50 ML VIAL IVP ONE (06:00)
[2018-12-20] MEDS ORDERED: INSULIN REGULAR HUMAN 100 UNIT in NS 100 ML IV ONE (06:00)
[2018-12-20] MEDS ORDERED: CARDIOPLEGIC SOLUTION 1,052.8 ML PF ONE (06:00)
[2018-12-20] MEDS ORDERED: ceFAZolin 2 GM/DEXTROSE 100 ML IV ONE (06:01)
[2018-12-20] MEDS ORDERED: AMINOCAPROIC ACID 5 GM/20 ML VIAL IV ONE (06:01)
[2018-12-20] MEDS ORDERED: CITRATE DEXTROSE SOLN 500 ML BAG MISC ONE (06:01)
[2018-12-20] MEDS ORDERED: MUPIROCIN 2% 22 GM OINT NS ONE (06:01)
[2018-12-20] MEDS ORDERED: niCARdipine/NACL 200 ML IV ONE (06:01)
[2018-12-20] MEDS ORDERED: ALBUMIN 5% 250 ML BOTTLE IV ONE ×3 (06:30→13:18)
[2018-12-20] MEDS ORDERED: PROTAMINE SULFATE 50 MG/5 ML VIAL IVP ONE (06:30)
[2018-12-20] MEDS ORDERED: LIDOCAINE 2% 100 MG/5 ML SYR ONE (06:31)
[2018-12-20] MEDS ORDERED: CALCIUM CHLORIDE 1 GM/10 ML INJ ONE ×2 (06:31→16:42)
[2018-12-20] MEDS ORDERED: AMINOCAPROIC ACID 5 GM/20 ML VIAL ONE (06:31)
[2018-12-20] MEDS ORDERED: NA BICARBONATE 50 MEQ/50 ML VIAL ONE (06:31)
[2018-12-20] MEDS ORDERED: MILRINONE/DEXTROSE/100 ML BAG IV ONE (06:31)
[2018-12-20] MEDS ORDERED: CITRATE DEXTROSE SOLN 500 ML BAG ONE (06:32)
[2018-12-20] MEDS ORDERED: HEPARIN 10,000 UNIT/10 ML MDV (1,000 UNIT/ML) ONE ×4 (06:32→06:52)
[2018-12-20] MEDS ORDERED: AMIODARONE HCL 150 MG/3 ML VIAL ONE ×2 (06:32→16:42)
[2018-12-20] MEDS ORDERED: DOPamine/DEXTROSE 400 MG/250 ML BAG IV ONE (06:32)
[2018-12-20] MEDS ORDERED: niCARdipine/NACL/200 ML BAG IV ONE (06:32)
[2018-12-20] MEDS ORDERED: ceFAZolin 1 GM VIAL ONE (06:33)
[2018-12-20] MEDS ORDERED: ADENOSINE 6 MG/2 ML VIAL ONE (06:33)
[2018-12-20] MEDS ORDERED: NITROGLYCERIN/D5W 50 MG/250 ML BOTTLE IV ONE (06:33)
[2018-12-20] MEDS ORDERED: methylPREDNISolone SOD SUCC 1 GM/8 ML VIAL ONE (06:33)
[2018-12-20] MEDS ORDERED: MAGNESIUM SULFATE 1 GM/2 ML VIAL ONE (06:33)
[2018-12-20] MEDS ORDERED: MINERAL OIL 10 ML VIAL ONE (06:34)
[2018-12-20] MEDS ORDERED: PAPAVERINE HCL 60 MG/2 ML SDV ONE (06:34)
[2018-12-20] MEDS ORDERED: VERAPAMIL 5 MG/2 ML VIAL ONE (06:34)
--- NOTE | 2018-12-20 06:37 | PDANEPAE ---
ANE History of Present Illness MR MONTOYA Past Medical History - Cardiovascular History Hx Hypertension: Yes Hx Arrhythmias: Yes Hx Chest Pain: Yes Hx Coronary Artery / Peripheral Vascular Disease: Yes Hx CHF / Valvular Disease: Yes Hx Palpitations: Yes Cardiovascular History Comment: ATRIAL FIB - PACEMAKER 07/16/2018. CAD. CHF. NON-ISCHEMIC CARDIOMYOPATHY - Pulmonary History Hx COPD: No Hx Asthma/Reactive Airway Disease: No Hx Recent Upper Respiratory Infection: No Hx Oxygen in Use at Home: No Hx Sleep Apnea: Yes Sleep Apnea Screening Result - Last Documented: Positive Pulmonary History Comment: POS SLEEP APNEA - NO CPAP - Neurologic History Hx Cerebrovascular Accident: No Hx Seizures: No Hx Dementia: No - Endocrine History Hx Diabetes: Yes Hypothyroid: No Hyperthyroid: No Obesity: no Endocrine History Comment: DM II - Renal History Hx Renal Disorders: No - Liver History Hx Hepatic Disorders: No - Neurological & Psychiatric Hx Hx Neurological and Psychiatric Disorders: No - Cancer History Hx Cancer: Yes Cancer History Comment: PROSTATE. SKIN CA REMOVED - BASAL CELL. CA ANUS REMOVED - Congenital Disorder History Hx Congenital Disorders: No - GI History GERD: mild Hx Gastrointestinal Disorders: Yes Gastrointestinal History Comment: CONSTIPATION - TAKES METAMUCIL - Other Health History Other Health History: Anemia - Chronic Pain History Chronic Pain: No - Surgical History Prior Surgeries: PACEMAKER PLACED 11-21-18. HEART CATH -. CARDIOVERSION X3. LOOP RECORDER IMPLANTED & REMOVED. CATARACT STEVE. CHOLECYSTECTOMY. COLONOSCOPY , EGD. KNEE SURGERY STEVE. PROSTATE. THYROID BX. 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 [employer] Date Pacemaker Last Checked: 10-01-18 ANE Patient History - Allergies Allergies/Adverse Reactions: No Known Allergies Allergy (Verified 07/15/18 09:50) - Home Medications Home medications: home medication list seen and reviewed Home Medications: Dabigatran Etexilate Mesyl [Pradaxa 150 MG (*)] 150 mg PO BID 07/15/18 [Last Taken 12/14/18 23:59] [place]-3 Fatty Acids [Fish Oil 1000 mg (*)] 1,000 mg PO DAILY 07/15/18 [Last Taken 1 Week Ago ~12/13/18] Pantoprazole Sodium [Protonix 40mg (*)] 40 mg PO BID 07/15/18 [Last Taken ] Pravastatin Sodium [Pravachol] 80 mg PO HS 07/15/18 [Last Taken 12/19/18] metFORMIN HCL [Glucophage 500 mg (*)] 500 mg PO BIDMEAL 07/15/18 [Last Taken 02/28] Ferrous Sulfate [Iron] 325 mg PO BID 11/15/18 [Last Taken 3 Days Ago ~12/17/18] Irbesartan [Avapro 150 mg (*)] 150 mg PO DAILY 11/15/18 [Last Taken 12/19/18 08: 00] - NPO status NPO Status: no food or drink >8 hours NPO Since - Liquids (Date): 12/19/18 NPO Since - Liquids (Time): 23:30 NPO Since - Solids (Date): 12/19/18 NPO Since - Solids (Time): 20:30 - Anes Hx Anes Hx: no prior problems - Smoking Hx Smoking Status: Former smoker - Family Anes Hx Family Anes Hx: none ANE Labs/Vital Signs - Vital Signs Blood Pressure: 139/101 Heart Rate: 80 Respiratory Rate: 16 O2 Sat (%): 93 Height: 186.69 cm Weight: 86.183 kg ANE Physical Exam - Airway Neck exam: FROM Mallampati Score: Class 2 Mouth exam: normal dental/mouth exam - Pulmonary Pulmonary: no respiratory distress, clear to auscultation - Cardiovascular Cardiovascular: irregularly irregular - ASA Status ASA Status: IV ANE Anesthesia Plan Anesthesia Plan: general endotracheal anesthesia Lines/Monitors: arterial line, central line, MCKAYLA
[2018-12-20] MEDS ORDERED: fentaNYL 250 MCG/5 ML INJ ONE (06:51)
[2018-12-20] MEDS ORDERED: PROPOFOL 200 MG/20 ML VIAL ONE (06:51)
--- NOTE | 2018-12-20 06:52 | PDHPUP ---
History & Physical Update H&P update statement: This history and physical update is based on an assessment of the patient which was completed after admission or registration (within 24 hours), but prior to the surgery/procedure. H&P update: H&P reviewed & patient examined, changes noted H&P changes: 12 pound unintentional weight loss, overall has been feeling poorly. Denies fevers, chills, changes in BM.
[2018-12-20] MEDS ORDERED: ROCURONIUM 100 MG/10 ML VIAL ONE (06:53)
[2018-12-20] MEDS ORDERED: LR 1,000 ML IV ONE (06:59)
[2018-12-20] MEDS ORDERED: DEXMEDETOMIDINE HCL 400 MCG in NS 100 ML IV SCH (10:00)
[2018-12-20] MEDS ORDERED: PHENYLEPHRINE HCL 100 MCG/ML SYR ONE ×2 (11:40)
[2018-12-20] MEDS ORDERED: ONDANSETRON 4 MG/2 ML VIAL ONE (11:56)
[2018-12-20] MEDS ORDERED: NALOXONE HCL 0.4 MG/ML INJ IVP PRN (12:09)
--- NOTE | 2018-12-20 12:09 | POSTANESTH ---
Post Anesthetic Evaluation Cardiovascular Status: Normal, Stable Respiratory Status: Normal, Stable, Requires Airway Assist Level of Consciousness/Mental Status: Unconscious Pain Control: Adequate, Prn Tx Ordered Nausea/Vomiting Control: Adequate, Prn Tx Ordered Complications Possibly Related to Anesthesia: None Noted
[2018-12-20] MEDS ORDERED: ACETAMINOPHEN 325 MG TAB PO PRN (12:22)
[2018-12-20] MEDS ORDERED: ONDANSETRON DISINTEGRATING 4 MG TAB PO PRN (12:22)
[2018-12-20] MEDS ORDERED: CEPACOL LOZENGE PO PRN (12:22)
[2018-12-20] MEDS ORDERED: MAGNESIUM HYDROXIDE 30 ML UDCUP PO PRN (12:22)
[2018-12-20] MEDS ORDERED: POLYETHYLENE GLYCOL 3350 17 GM PKT PO PRN (12:22)
[2018-12-20] MEDS ORDERED: MEPERIDINE 25 MG/0.5 ML AMP IVP PRN (12:22)
[2018-12-20] MEDS ORDERED: BISACODYL 10 MG SUPP PR PRN (12:22)
[2018-12-20] MEDS ORDERED: PANTOPRAZOLE SODIUM 40 MG VIAL IVP ONE (12:22)
[2018-12-20] MEDS ORDERED: D50W 25 GM/50 ML SYR IVP PRN (12:22)
[2018-12-20] MEDS ORDERED: ACETAMINOPHEN 650 MG SUPP PR PRN (12:22)
[2018-12-20] MEDS ORDERED: SODIUM CL NASAL 45 ML BTL EACHNARE PRN (12:22)
[2018-12-20] MEDS ORDERED: LACTULOSE 20 GM/30 ML UDCUP PO PRN (12:22)
[2018-12-20] MEDS ORDERED: METOCLOPRAMIDE 10 MG/2 ML VIAL IVP PRN (12:22)
[2018-12-20] MEDS ORDERED: INSULIN REGULAR HUMAN 100 UNIT in NS 100 ML IV SCH (12:30)
[2018-12-20] MEDS ORDERED: NS 1,000 ML IV SCH (12:30)
[2018-12-20] MEDS ORDERED: niCARdipine/NACL 200 ML IV SCH (12:30)
[2018-12-20] MEDS: ALBUMIN 5% 250 ML IV PRN ×2 (13:00→21:11)
[2018-12-20] MEDS: POTASSIUM Cl (KCl) 50 ML IV PRN ×5 (13:05→20:26)
[2018-12-20] MEDS ORDERED: POTASSIUM Cl (KCl) 20 MEQ/50 ML BAG IV ONE (13:18)
[2018-12-20] MEDS ORDERED: AMIODARONE HCL 100 ML IV ONE (13:20)
[2018-12-20] MEDS ORDERED: AMIODARONE HCL 150 MG/100 ML BAG (1.5 MG/ML) IV ONE (13:22)
[2018-12-20] MEDS ORDERED: ALBUMIN 5% 500 ML BOTTLE IV ONE (13:29)
[2018-12-20] MEDS ORDERED: AMIODARONE HCL 150 MG/3 ML VIAL IV ONE (13:30)
[2018-12-20] MEDS ORDERED: CALCIUM CHLORIDE 1 GM/10 ML INJ IV ONE (13:30)
[2018-12-20] MEDS ORDERED: ALBUMIN 5% 500 ML IV ONE (13:30)
[2018-12-20] MEDS ORDERED: NOREPINEPHRINE BITARTRATE 16 MG in NS 250 ML IV SCH ×2 (13:45→14:00)
--- NOTE | 2018-12-20 14:03 | GOP ---
[f rep st] OPERATIVE REPORT DATE OF OPERATION: 12/20/2018 SURGEON: Paul Strickland DO QA SOFTWARE TEST ENGINEER: Faisal Ventura PA-C ANESTHESIOLOGIST: Nathaly Taylor MD PREOPERATIVE DIAGNOSIS: 1. 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 2. Longstanding persistent atrial fibrillation. 3. Arteriosclerotic heart disease. POSTOPERATIVE DIAGNOSIS: 1. 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 2. Longstanding persistent atrial fibrillation. 3. Arteriosclerotic heart disease. PROCEDURE PERFORMED: 1. Mitral valve repair with #30 Physio II annuloplasty ring. 2. Coronary bypass grafting x2 with left internal mammary artery to the ramus branch and saphenous vein graft to the 2nd diagonal. 3. Tricuspid valve repair with #32 Padron annuloplasty ring. 4. Biatrial Jiménez-Maze IV with radiofrequency and cryoablation with sensing and testing. FINDINGS: DESCRIPTION OF PROCEDURE: Patient was consented for surgery, brought to the operating room, intubated. Monitoring lines were placed. This patient had class 2 to class 3 congestive heart failure symptoms, refractory atrial fibrillation, and worsening mitral insufficiency with dilated cardiomyopathy. A salvage repair was requested of his mitral and tricuspid valves as well as Jiménez -Maze IV and 2 vessel bypass grafting. After time-out was confirmed, he was prepped and draped in sterile classical manner. Sternotomy was performed. Mammary was harvested, which was excellent 3 mm vessel as was the vein from the left lower ankle. Sternotomy was performed. Aorta was interrogated and was without plaque or calcification. It was cannulated as well as biatrial cannulation with caval tapes. After heparinization, we then performed sensing and testing on both left and right pulmonary veins with evidence of full conduction and no evidence of entrance or exit block. We then encircled the right pulmonary venous antrum and performed 3 overlapping lines of ablation per protocol with the last of each line being less than 5 seconds. We then tested both lines and confirmed entrance and exit block. We then arrested the heart. We excised the tip of the left atrial appendage, which was free of thrombus on echo. A clamp was placed into the appendage across into the right superior pulmonary vein crossing the previous ablation line. Multiple ablation lines were performed until they were under 5 seconds. We then placed a 40 mm atrial clip across the base of the left atrial appendage. We marked the terminus of the arteries on the coronary sinus and actually ablated that with cryo for 2 minutes, extending down onto the atrium and marking that. We then exposed the left atrium through the right superior pulmonary vein. We extended the incisions almost all the way across the back of the atrium for the roof and floor lesions being predominantly cut leaving the last centimeter for radiofrequency ablation with multiple ablation lines overlapping at less than 5 seconds. We then performed a repeat external coronary sinus ablation from the right side extending up to the edge of the cut inferior incision in the left atrium and did that for 2 minutes. We then overlapped that with an isthmus line within the atrium, overlapping the external. After completing roof and floor lines and the isthmus line, the mitral valve was interrogated. 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 Circumferential annuloplasty sutures were placed. He was sized for a 32 ring, which was brought down. However with distention of the ventricle , he had multiple areas of jets, had multiple clefts, and the coaptation line was not sufficient I thought. For that reason, I removed that ring and put a 30 ring Physio II, which eliminated all central regurgitation and left a 0.5 cm of overlap on the anterior and posterior leaflets with the blue dye test. This was secured with Cor-Knots. The left atrium was closed in standard fashion. The LV sump was placed into the ventricle. We then performed grafting to a 3.5 mm inner ramus branch with a large mammary artery without difficulty, tacking it to the epicardium. We then grafted the diagonal with vein, bringing the proximal off the ascending aorta. Rewarming was begun. We then opened the right atrium after securing caval tapes with an inferiorly placed vertical atriotomy. We then performed the superior and inferior vena caval and free- wall lesions with radiofrequency ablation again until there were less than 5 seconds. We then placed the circumferential annuloplasty suture rings on the tricuspid valve, which was markedly dilated and then after the sutures were placed, we removed the cross-clamp in Trendelenburg with venting on the ascending aorta to remove any air as well as the LV sump to prevent injection of air. At that point, I did a 2 minute isthmus cryoablation at 2 o'clock from the atriotomy incision. We then secured the tricuspid ring in place with Cor- Knots and no regurgitation was identified at the completion with distention. Right atrium was closed in a 2-layer fashion. Spontaneous cardiac activity was noted to resume. The patient was in sinus rhythm. He did have an indwelling permanent pacemaker, which was preserved. When no further air was identified, he was weaned from bypass in Trendelenburg with intermittent aspiration through the LV apex with the sump off. LV sump was then removed. He was weaned from bypass. Echo revealed preserved ejection fraction, unchanged from before. No evidence of mitral insufficiency, no REANNA, and no tricuspid insufficiency. Biventricular function was preserved. Heparin was reversed with protamine. The cannula was removed and oversewn. Two ventricular pacing wires were placed. Two pleural, 1 mediastinal drain were placed. Thymic fat and pericardium were closed. Chest was closed in standard fashion. Patient was returned to ICU in stable condition. /[id number]/MODL MTDD
[2018-12-20] MEDS: ceFAZolin 2 GM/DEXTROSE 100 ML IV SCH ×2 (14:20→23:00)
[2018-12-20] MEDS: fentaNYL 100 MCG/2 ML INJ IVP PRN ×4 (14:22→20:44)
--- NOTE | 2018-12-20 14:37 | PDMN ---
Medical Necessity Medical necessity: Pt meets inpt criteria per MD order and [facility] [place] [facility], Coronary Artery Bypass Graft (CABG), 4 days, [facility] IP only list, 73 y/o admitted for MVR, CABGX2, TVR, and CM IV and post-op care. Anticipate>2MN.
--- NOTE | 2018-12-20 15:03 | GHP ---
[f rep st] HISTORY AND PHYSICAL DATE OF ADMISSION: 12/20/2018 REFERRING PHYSICIAN: Paul Strickland DO Pulmonary/Critical Care Consultation REASON FOR REFERRAL: Evaluation and management of respiratory failure and sleep apnea. HISTORY: The patient is a 73-year-old male with a history of coronary artery disease, sick sinus syn drome, and MR, who was referred by Cardiology for surgical consideration. Today, he underwent a mitr al valve and tricuspid valve repair, 2 vessel CABG, and Jiménez-Maze procedure for chronic atrial fibrill ation. His intraoperative course was unremarkable. He remains on the ventilator postoperatively. PAST MEDICAL HISTORY: 1. Atrial fibrillation. The patient has been cardioverted several times. 2. Type 2 diabetes. 3. Obstructive sleep apnea, not currently on treatment. 4. Coronary artery disease. 5. Hypertension. 6. History of prostate cancer. MEDICATIONS: At the time of admission include Benadryl, Coreg, irbesartan, iron, Metamucil, metformi n, nifedipine, Pradaxa, Pravachol and Protonix. ALLERGIES: None. SOCIAL HISTORY: The patient has about a 70 pack-year history of smoking, stopped 19 years ago. He i s a former drinker, stopped in 1981. FAMILY HISTORY: Unremarkable. REVIEW OF SYSTEMS: Unobtainable. PHYSICAL EXAMINATION: GENERAL: The patient is intubated and sedated. VITAL SIGNS: Blood pressure is 139/101 with a heart rate of 80. He is afebrile. Oxygen saturations are in the 90s on the ventil ator. HEENT: Normocephalic and atraumatic. No icterus. NECK: No JVD. Trachea is midline. CHEST : Clear to auscultation. CARDIAC: Regular rate and rhythm without murmur. ABDOMEN: Soft, nontend er. Bowel sounds are present. EXTREMITIES: No clubbing, cyanosis, or edema. NEURO: The patient i s sedated, intubated. He has diffuse weakness, likely related to persistent paralysis. LABORATORY: Chemistry group is unremarkable. Glucose is 138, hemoglobin is 14.6. Blood gas shows a pH of 7.33 with a pO2 of 152, a CO2 of 48 and a bicarbonate of 26 on 100% oxygen. A chest x-ray kera ws a small left apical pneumothorax. The ET tube is in appropriate position. Images reviewed by me. ASSESSMENT: 1. Status post coronary artery bypass graft, mitral valve repair, tricuspid valve repair and Jiménez-Adam e procedure. The patient's intraoperative course was unremarkable and he is now hemodynamically stab le. 2. Atrial fibrillation. The patient is status post Jiménez-Maze procedure and is currently in sinus rhy thm. 3. Postoperative respiratory failure. The patient continues to require mechanical ventilation due t o ongoing sedation/anesthesia. 4. Obstructive sleep apnea. The severity of this is unknown. He is apparently not on CPAP therapy for this. 5. Diabetes. The patient's blood sugars are in the 130s. He is usually on metformin, but this has been held. PLAN: 1. Wean and extubate per protocol. 2. Insulin drip to control blood sugars. 3. Once the patient is extubated, he may benefit from CPAP while in the hospital. I will get more h istory and may consider further outpatient therapy for his sleep apnea. /[id number]/MODL
[2018-12-20] MEDS: FAMOTIDINE 20 MG/NACL 50 ML IV SCH ×3 (17:35→19:40)
[2018-12-20] MEDS: CHLORHEXIDINE GLUCONATE 15 ML UDL PO SCH ×2 (17:35→20:45)
[2018-12-20] MEDS: ONDANSETRON 4 MG/2 ML VIAL IVP PRN (18:31)
[2018-12-20] MEDS: MUPIROCIN 2% 22 GM OINT NS SCH (20:45)
[2018-12-20] MEDS: SENNOSIDES/DOCUSATE SODIUM TAB PO SCH (20:45)
[2018-12-21] MEDS: HYDROCODONE/APAP 5/325 TAB PO PRN ×5 (00:44→18:06)
[2018-12-21 05:39] LABS: PLATELET COUNT 88 10^3/uL (150-400)
[2018-12-21] MEDS ORDERED: HEPARIN 5,000 UNIT/0.5 ML INJ SC SCH (06:00)
[2018-12-21] MEDS: ceFAZolin 2 GM/DEXTROSE 100 ML IV SCH ×3 (06:23→21:05)
[2018-12-21] MEDS: ONDANSETRON 4 MG/2 ML VIAL IVP PRN (07:01)
[2018-12-21] MEDS: CHLORHEXIDINE GLUCONATE 15 ML UDL PO SCH (07:09)
[2018-12-21] MEDS: FAMOTIDINE 20 MG/NACL 50 ML IV SCH (07:09)
--- NOTE | 2018-12-21 07:09 | SOAPPROG ---
SOAP Progress Note Assessment/Plan: POD #1: MV repair with #30 Physio ring, TV repair with #30 MC3 ring, Jiménez-Maze IV , CABGx2 (HDZ-ramus, SVG-D2), open SVG harvest RLE LSPAF s/p Jiménez-Maze IV - CTs to bulb suction, FC out, AL to remain while on pressor - Post-op paced rhythm - Thromboprophylaxis as per pre-op with Pradaxa - Amiodarone and beta-marry for AF prophylaxis when appropriate Moderate-severe MR with secondary TR s/p repair with annuloplasty rings -Thromboprophylaxis as per CM IV CAD s/p CABGx2 - BB/ASA/statin for secondary prevention when appropriate Acute post-op blood loss anemia - Stable without the need for transfusions h/o SSS s/p dual-chambered PPM implantation - Stable DM 2, A1c 7.5% - Insulin gtt to ISS this AM - Pre-op Metformin as per hospitalist Right neck/left groin masses - To be addressed once recovered DVT prophylaxis - SCDs/heparin SQ Disposition - ICU status until dopamine is weaned Subjective: Denies pain/SOB. Objective: Vital Signs Temp Pulse Resp BP Pulse Ox 36.4 C 60 23 H 131/64 H 97 12/20/18 20:00 12/21/18 07:00 12/21/18 07:00 12/21/18 07:00 12/21/18 07:00 Laboratory Results 12/21/18 05:14 12/21/18 05:14 12/20/18 12/21/18 12/22/18 05:59 05:59 05:59 Intake Total 3485.6 Output Total 2400 Balance 1085.6 Physical Exam - Physical Exam General Appearance: WD/WN, alert, no apparent distress EENT: No scleral icterus (R), No scleral icterus (L) Neck: normal inspection Respiratory: No respiratory distress Cardiac/Chest: other (paced, atrially ) Abdomen: non-tender, soft, No distended Skin: normal color, warm/dry Extremities: No pedal edema Neuro/Psych: no motor/sensory deficits, alert, normal mood/affect, oriented x 3 ICD10 Worksheet Patient Problems: Problems Problem Status Onset Acute blood loss anemia Acute Atrial fibrillation Acute CAD (coronary artery disease) Acute Mitral regurgitation Acute S/P CABG x 2 Acute S/P ablation of atrial fibrillation Acute S/P tricuspid valve repair Acute Status post mitral valve annuloplasty Acute Tricuspid regurgitation Acute Iron deficiency anemia Acute
--- NOTE | 2018-12-21 07:33 | CPEKG ---
Test Reason : OPEN Blood Pressure : / mmHG Vent. Rate : 079 BPM Atrial Rate : 079 BPM P-R Int : 256 ms QRS Dur : 093 ms QT Int : 448 ms P-R-T Axes : 079 005 053 degrees QTc Int : 514 ms Sinus rhythm Prolonged GA interval Inferior infarct, old Probable anterior infarct, old Prolonged QT interval Confirmed by Josh Crespo ([id number]) on 12/21/2018 7:32:38 AM Referred By: Paul Strickland Confirmed By:Josh Crespo
[2018-12-21] MEDS: SENNOSIDES/DOCUSATE SODIUM TAB PO SCH ×2 (08:35→21:04)
[2018-12-21] MEDS: MUPIROCIN 2% 22 GM OINT NS SCH ×2 (08:35→21:05)
[2018-12-21] MEDS: PANTOPRAZOLE SODIUM 40 MG TAB PO SCH ×2 (08:35→21:04)
[2018-12-21] MEDS: ASPIRIN 81 MG CHEWABLE TAB PO SCH (08:35)
[2018-12-21] MEDS: AMIODARONE HCL 200 MG TAB PO SCH ×2 (09:18→21:04)
[2018-12-21] MEDS ORDERED: FUROSEMIDE 20 MG/2 ML VIAL IVP ONE (12:30)
[2018-12-21] MEDS ORDERED: NS 500 ML IV ONE (12:30)
[2018-12-21] MEDS: INSULIN LISPRO 100 UNIT/ML SC SCH ×2 (12:46→17:21)
[2018-12-21] MEDS ORDERED: SODIUM ZIRCONIUM CYCLOSILICATE 10 GM PACKET PO ONE (13:28)
--- NOTE | 2018-12-21 14:08 | PDHOSCONS ---
History and Physical - Chief Complaint Diabetes - History of Present Illness Mr William Mendez is a 73 yo M with a PMHx of A Fib, T2DM, KADI, CAD, HTN, SSS, MR who is POD 1 s/p MV repair with #30 Physio ring, TV repair with #30 MC3 ring, Jiménez-Maze IV, CABGx2 (HDZ-ramus, SVG-D2), open SVG harvest RLE. He reports that is feeling well this morning. Hospitalist service consulted for management of diabetes. He reports he was uncontrolled in the past with A1c > 10. He underwent significant lifestyle modifications with weight loss (50 lbs) and exercise. He reports his last A1c 6.3 at PCP. He is currently on metformin 500 mg bID. History Information - Allergies/Home Medication List Allergies/Adverse Reactions: No Known Allergies Allergy (Verified 07/15/18 09:50) Home Medications: Dabigatran Etexilate Mesyl [Pradaxa 150 MG (*)] 150 mg PO BID 07/15/18 [Last Taken 12/14/18 23:59] [place]-3 Fatty Acids [Fish Oil 1000 mg (*)] 1,000 mg PO DAILY 07/15/18 [Last Taken 1 Week Ago ~12/13/18] Pantoprazole Sodium [Protonix 40mg (*)] 40 mg PO BID 07/15/18 [Last Taken ] Pravastatin Sodium [Pravachol] 80 mg PO HS 07/15/18 [Last Taken 12/19/18] metFORMIN HCL [Glucophage 500 mg (*)] 500 mg PO BIDMEAL 07/15/18 [Last Taken 02/28] Ferrous Sulfate [Iron] 325 mg PO BID 11/15/18 [Last Taken 3 Days Ago ~12/17/18] Irbesartan [Avapro 150 mg (*)] 150 mg PO DAILY 11/15/18 [Last Taken 12/19/18 08: 00] I have personally reviewed and updated: family history, medical history, social history, surgical history - Past Medical History atrial fibrillation, coronary artery disease, hypertension Additional medical history: MR, ENRIQUE - Surgical History Reports: coronary bypass surgery - Family History Positive for: non-pertinent - Social History Smoking Status: Former smoker Review of Systems Review of Systems: ROS: 10pt was reviewed & negative except for what was stated in HPI & below Physical Exam Physical Exam: Temp Pulse Resp BP Pulse Ox 36.6 C 60 16 125/75 H 94 12/21/18 12:00 12/21/18 13:00 12/21/18 13:00 12/21/18 12:00 12/21/18 13:00 O2 (L/minute) 1 FIO2 (%) 40 Constitutional: no apparent distress Eyes: PERRL Ears, Nose, Mouth, Throat: moist mucous membranes Cardiovascular: regular rate and rhythym Respiratory: no respiratory distress, reduced air movement Gastrointestinal: soft, non-tender abdomen Skin: warm Musculoskeletal: full muscle strength Neurologic: AAOx3 Psychiatric: interacting appropriately Lab Data & Imaging Review 12/21/18 05:14 12/21/18 11:30 WBC 16.25 10^3/uL (3.80-9.50) H 12/21/18 05:14 RBC 4.89 10^6/uL (4.40-6.38) 12/21/18 05:14 Hgb 12.8 g/dL (13.7-17.5) L 12/21/18 05:14 POC Hgb 12.9 gm/dL (13.7-17.5) L 12/21/18 04:02 Hct 40.3 % (40.0-51.0) 12/21/18 05:14 POC Hct 38 % (40-51) L 12/21/18 04:02 MCV 82.4 fL (81.5-99.8) 12/21/18 05:14 MCH 26.2 pg (27.9-34.1) L 12/21/18 05:14 MCHC 31.8 g/dL (32.4-36.7) L 12/21/18 05:14 RDW 15.9 % (11.5-15.2) H 12/21/18 05:14 Plt Count 88 10^3/uL (150-400) L 12/21/18 05:14 MPV 10.0 fL (8.7-11.7) 12/21/18 05:14 Neut % (Auto) 84.7 % (39.3-74.2) H 12/21/18 05:14 Lymph % (Auto) 7.7 % (15.0-45.0) L 12/21/18 05:14 [place] % (Auto) 6.7 % (4.5-13.0) 12/21/18 05:14 Eos % (Auto) 0.1 % (0.6-7.6) L 12/21/18 05:14 Baso % (Auto) 0.2 % (0.3-1.7) L 12/21/18 05:14 Nucleat RBC Rel Count 0.0 % (0.0-0.2) 12/21/18 05:14 Absolute Neuts (auto) 13.77 10^3/uL (1.70-6.50) H 12/21/18 05:14 Absolute Lymphs (auto) 1.25 10^3/uL (1.00-3.00) 12/21/18 05:14 Absolute Monos (auto) 1.09 10^3/uL (0.30-0.80) H 12/21/18 05:14 Absolute Eos (auto) 0.01 10^3/uL (0.03-0.40) L 12/21/18 05:14 Absolute Basos (auto) 0.03 10^3/uL (0.02-0.10) 12/21/18 05:14 Absolute Nucleated RBC 0.00 10^3/uL (0-0.01) 12/21/18 05:14 Immature Gran % 0.6 % (0.0-1.1) 12/21/18 05:14 Immature Gran # 0.10 10^3/uL (0.00-0.10) 12/21/18 05:14 POC Blood Source ARTERIAL 12/20/18 12:55 Puncture Site ARTERIAL LINE 12/20/18 15:15 Patient Temperature 37.0 DEGREES 12/20/18 15:15 pCO2 52 mmHg (34-38) H 12/20/18 15:15 pO2 79 mmHg (65-75) H 12/20/18 15:15 Total CO2 26 mEq/L (23-27) 12/20/18 15:15 POC ABG pH 7.33 (7.35-7.45) L 12/20/18 12:55 ABG pH 7.29 (7.35-7.45) L 12/20/18 15:15 POC ABG pCO2 48 mmHg (34-38) H 12/20/18 12:55 POC ABG pO2 152 mmHg (65-75) H 12/20/18 12:55 ABG PO2/FiO2 Ratio 197 RATIO 12/20/18 15:15 POC ABG HCO3 26 mEq/L (22-26) 12/20/18 12:55 ABG HCO3 24 mEq/L (22-26) 12/20/18 15:15 POC ABG Total CO2 27 mEq/L (23-27) 12/20/18 12:55 POC ABG O2 Sat 99 % (92-95) H 12/20/18 12:55 ABG O2 Saturation 92 % (92-95) 12/20/18 15:15 POC ABG Base Excess -1.0 mEq/L (-2.5-2.5) 12/20/18 12:55 ABG Base Excess -2.9 mEq/L (-2.5-2.5) L 12/20/18 15:15 O2 Concentration % 40 % (0-100) 12/20/18 15:15 Actual Respiration Rate 14 12/20/18 15:15 POC FiO2 100.0000 % (0-100) 12/20/18 12:55 PEEP 5 12/20/18 15:15 Pressure Support 7 12/20/18 15:15 CPAP YES 12/20/18 15:15 POC Sodium 144 mEq/L (135-145) 12/21/18 04:02 Sodium 142 mEq/L (135-145) 12/21/18 05:14 POC Potassium 4.9 mEq/L (3.3-5.0) 12/21/18 04:02 Potassium 5.5 mEq/L (3.5-5.2) H 12/21/18 11:30 POC Chloride 109 mEq/L (97-110) 12/21/18 04:02 Chloride 112 mEq/L (97-110) H 12/21/18 05:14 Carbon Dioxide 23 mEq/l (22-31) 12/21/18 05:14 POC Total CO2 22 mEq/L (22-31) 12/21/18 04:02 Anion Gap 7 mEq/L (6-14) 12/21/18 05:14 POC BUN 17 mg/dL (7-23) 12/21/18 04:02 BUN 18 mg/dL (7-23) 12/21/18 05:14 Creatinine 0.8 mg/dL (0.7-1.3) 12/21/18 05:14 POC Creatinine 0.8 mg/dL (0.7-1.3) 12/21/18 04:02 Estimated GFR > 60 12/21/18 05:14 Glucose 102 mg/dL (70-100) H 12/21/18 05:14 POC Glucose 85 mg/dL (70-100) 12/21/18 12:43 Calcium 8.3 mg/dL (8.5-10.4) L 12/21/18 05:14 Patient ABO/Rh A POSITIVE 12/17/18 09:31 Antibody Screen NEGATIVE 12/17/18 09:31 Assessment & Plan Assessment: William Mendez is a 73 yo who is POD #1: MV repair with #30 Physio ring, TV repair with #30 MC3 ring, Jiménez-Maze IV, CABGx2 (HDZ-ramus, SVG-D2), open SVG harvest RLE. DM 2, A1c 7.5% during this admission - Transitioning from Insulin gtt to sliding scale insulin this morning - BG ranging 85-110, continue to monitor off of insulin gtt - Continue to hold Metformin MR, TR s/p repair with annuloplasty rings -ASA, Pradaxa CAD s/p CABGx2 - ASA as above - BB/statin initiation per primary service Acute post-op blood loss anemia - Hgb 12.8 this AM, continue to monitor Thank you for the consult. We will continue to follow along during patient's hospitalization. Please contact hospitalist service for any questions or concerns.
[2018-12-21] MEDS ORDERED: CARVEDILOL 3.125 MG TAB PO ONE (16:31)
[2018-12-22] MEDS: HYDROCODONE/APAP 5/325 TAB PO PRN ×2 (00:32→21:11)
[2018-12-22] MEDS: fentaNYL 100 MCG/2 ML INJ IVP PRN (04:50)
[2018-12-22 05:09] LABS: PLATELET COUNT 78 10^3/uL (150-400)
--- NOTE | 2018-12-22 07:43 | SOAPPROG ---
SOAP Progress Note Assessment/Plan: POD #2: MV repair with #30 Physio ring, TV repair with #30 MC3 ring, Jiménez-Maze IV , CABGx2 (HDZ-ramus, SVG-D2), open SVG harvest LLE LSPAF s/p Jiménez-Maze IV - Post-op paced and sinus rhythm - CTs to bulb suction with possible removal today, FC/AL out - AF prophylaxis with Amiodarone/BB - Thromboprophylaxis as per pre-op with Pradaxa Moderate-severe MR with secondary TR s/p repairs with annuloplasty rings -Thromboprophylaxis as per CM IV CAD s/p CABGx2 - BB/ASA/statin for secondary prevention when appropriate Acute post-op blood loss anemia - Stable without the need for transfusions h/o SSS s/p dual-chambered PPM implantation - Stable DM 2, A1c 7.5% - Insulin gtt transitioned tp ISS - Pre-op Metformin as per hospitalist Right neck/left groin masses - To be addressed once recovered DVT prophylaxis - SCDs/Pradaxa Disposition - PCU Subjective: Feels a little anxious. Denies pain/SOB. Objective: Vital Signs Temp Pulse Resp BP Pulse Ox 36.9 C 75 16 150/95 H 95 12/21/18 19:43 12/22/18 06:00 12/22/18 06:00 12/22/18 06:00 12/22/18 06:00 Laboratory Results 12/22/18 04:55 12/22/18 04:55 12/21/18 12/22/18 12/23/18 05:59 05:59 05:59 Intake Total 3485.6 2990 Output Total 2400 1183.5 Balance 1085.6 1806.5 Physical Exam - Physical Exam General Appearance: WD/WN, alert, no apparent distress EENT: No scleral icterus (R), No scleral icterus (L) Neck: normal inspection Respiratory: No respiratory distress Cardiac/Chest: regular rate, rhythm Abdomen: non-tender, soft, No distended Skin: normal color, warm/dry Extremities: No pedal edema Neuro/Psych: no motor/sensory deficits, alert, normal mood/affect, oriented x 3 ICD10 Worksheet Patient Problems: Problems Problem Status Onset Acute blood loss anemia Acute Atrial fibrillation Acute CAD (coronary artery disease) Acute Mitral regurgitation Acute S/P CABG x 2 Acute S/P ablation of atrial fibrillation Acute S/P tricuspid valve repair Acute Status post mitral valve annuloplasty Acute Tricuspid regurgitation Acute Iron deficiency anemia Acute
[2018-12-22] MEDS: INSULIN LISPRO 100 UNIT/ML SC SCH ×3 (07:44→16:24)
[2018-12-22] MEDS ORDERED: FUROSEMIDE 40 MG/4 ML VIAL IVP ONE (07:58)
[2018-12-22] MEDS ORDERED: traMADol 50 MG TAB PO PRN (08:15)
[2018-12-22] MEDS: SENNOSIDES/DOCUSATE SODIUM TAB PO SCH ×2 (09:01→21:11)
[2018-12-22] MEDS: CARVEDILOL 6.25 MG TAB PO SCH ×2 (09:02→17:56)
[2018-12-22] MEDS: ASPIRIN 81 MG CHEWABLE TAB PO SCH (09:04)
[2018-12-22] MEDS: AMIODARONE HCL 200 MG TAB PO SCH ×2 (09:04→21:11)
[2018-12-22] MEDS: PANTOPRAZOLE SODIUM 40 MG TAB PO SCH ×2 (09:04→21:11)
[2018-12-22] MEDS: DABIGATRAN ETEXILATE MESYL 150 MG CAP PO SCH ×2 (09:05→21:11)
[2018-12-22] MEDS: MUPIROCIN 2% 22 GM OINT NS SCH (09:06)
--- NOTE | 2018-12-22 11:35 | HOSPPROG ---
Hospitalist Progress Note Assessment/Plan: William Mendez is a 73 yo who is POD #1: MV repair with #30 Physio ring, TV repair with #30 MC3 ring, Jiménez-Maze IV, CABGx2 (HDZ-ramus, SVG-D2), open SVG harvest RLE. DM 2, A1c 7.5% during this admission - Transitioned from Insulin gtt to sliding scale insulin on 12/21 - BG ranging 140-179 this AM - Continue SSI, glucose checks - May restart Metformin if no contrasted studies planned per primary service MR, TR s/p repair with annuloplasty rings -ASA, Pradaxa CAD s/p CABGx2 - ASA, Coreg - Statin initiation per primary service Acute post-op blood loss anemia - Hgb stable this AM, continue to monitor Subjective: Patient reports no complaints this AM Objective: Vital Signs Temp Pulse Resp BP Pulse Ox 36.4 C 60 16 121/75 H 97 12/22/18 10:36 12/22/18 10:36 12/22/18 10:36 12/22/18 10:36 12/22/18 10:36 Laboratory Results 12/22/18 04:55 12/22/18 04:55 12/21/18 12/22/18 12/23/18 05:59 05:59 05:59 Intake Total 3485.6 2990 200 Output Total 2400 1183.5 650 Balance 1085.6 1806.5 -450 - Physical Exam Constitutional: chronically ill appearing Eyes: PERRL Ears, Nose, Mouth, Throat: moist mucous membranes Cardiovascular: regular rate and rhythym Respiratory: no respiratory distress Gastrointestinal: soft, non-tender abdomen Genitourinary: No cardoso in urethra Musculoskeletal: full muscle strength Neurologic: AAOx3 Psychiatric: interacting appropriately ICD10 Worksheet Patient Problems: Problems Problem Status Onset Acute blood loss anemia Acute Atrial fibrillation Acute CAD (coronary artery disease) Acute Mitral regurgitation Acute S/P CABG x 2 Acute S/P ablation of atrial fibrillation Acute S/P tricuspid valve repair Acute Status post mitral valve annuloplasty Acute Tricuspid regurgitation Acute Iron deficiency anemia Acute
[2018-12-22] MEDS ORDERED: CALCIUM CARBONATE 500 MG CHEWABLE TAB PO PRN (11:44)
--- NOTE | 2018-12-22 15:10 | ASMTCMCOM ---
CM Note CM Note Notes: CM spoke with pt and RN in the room. Pt admitted for open heart surgery and transferred to PCU from ICU today. Pt lives independently with Maria E. PT and OT are recommending [facility] and pt is agreeable. Pt's address and phone number confirmed and pt has PCP. HC sent referral. [facility] Intake to review on Sunday. Discharge date TBD. CM to follow. D/C Plan: [facility] Date Signed: 12/22/2018 03:10 PM Electronically Signed By:Madeleine Mistry
[2018-12-22] MEDS: CITRIC ACID PO SCH (21:11)
[2018-12-22] MEDS: ASPIRIN PO SCH (21:11)
[2018-12-22] MEDS: SOD BICARB PO SCH (21:11)
--- NOTE | 2018-12-23 07:11 | SOAPPROG ---
PILAR Progress Note Assessment/Plan: POD #3: MV repair with #30 Physio ring, TV repair with #30 MC3 ring, Jiménez-Maze IV , CABGx2 (HDZ-ramus, SVG-D2), open SVG harvest LLE LSPAF s/p Jiménez-Maze IV - Post-op paced and sinus rhythm - CTs to suction (left pleural to be removed, right and med to remain, FC/AL out, PWs to be cut tomorrow - AF prophylaxis with Amiodarone/BB - Thromboprophylaxis as per pre-op with Pradaxa Moderate-severe MR with secondary TR s/p repairs with annuloplasty rings -Thromboprophylaxis as per CM IV - Routine post-op TTE tomorrow CAD s/p CABGx2 - BB/ASA/statin for secondary prevention when appropriate Acute post-op blood loss anemia - Stable without the need for transfusions h/o SSS s/p dual-chambered PPM implantation - Stable DM 2, A1c 7.5% - Insulin gtt transitioned to ISS - Pre-op Metformin as per hospitalist Right neck/left groin masses - To be addressed once recovered DVT prophylaxis - SCDs/Pradaxa Disposition - PCU Subjective: Feeling much better today. Got great rest last night. Denies pain/SOB. Objective: Vital Signs Temp Pulse Resp BP Pulse Ox 36.6 C 60 14 124/71 H 96 12/23/18 04:00 12/23/18 04:00 12/23/18 04:00 12/23/18 04:00 12/23/18 04:00 Laboratory Results 12/23/18 03:00 12/23/18 03:00 12/22/18 12/23/18 12/24/18 05:59 05:59 05:59 Intake Total 2990 830 Output Total 1183.5 2702 Balance 1806.5 -1872 Physical Exam - Physical Exam General Appearance: WD/WN, alert, no apparent distress EENT: No scleral icterus (R), No scleral icterus (L) Neck: normal inspection Respiratory: No respiratory distress Cardiac/Chest: regular rate, rhythm, other (paced) Abdomen: non-tender, soft, No distended Skin: normal color, warm/dry Extremities: pedal edema Neuro/Psych: no motor/sensory deficits, alert, normal mood/affect, oriented x 3 ICD10 Worksheet Patient Problems: Problems Problem Status Onset Acute blood loss anemia Acute Atrial fibrillation Acute CAD (coronary artery disease) Acute Mitral regurgitation Acute S/P CABG x 2 Acute S/P ablation of atrial fibrillation Acute S/P tricuspid valve repair Acute Status post mitral valve annuloplasty Acute Tricuspid regurgitation Acute Iron deficiency anemia Acute
[2018-12-23] MEDS: INSULIN LISPRO 100 UNIT/ML SC SCH ×3 (08:03→17:05)
[2018-12-23] MEDS: CARVEDILOL 6.25 MG TAB PO SCH ×2 (08:40→17:04)
[2018-12-23] MEDS: PANTOPRAZOLE SODIUM 40 MG TAB PO SCH ×2 (08:40→21:04)
[2018-12-23] MEDS: ASPIRIN 81 MG CHEWABLE TAB PO SCH (08:41)
[2018-12-23] MEDS: FUROSEMIDE 40 MG TAB PO SCH (08:41)
[2018-12-23] MEDS: DABIGATRAN ETEXILATE MESYL 150 MG CAP PO SCH ×2 (08:41→21:04)
[2018-12-23] MEDS: AMIODARONE HCL 200 MG TAB PO SCH ×2 (08:41→21:05)
[2018-12-23] MEDS: SENNOSIDES/DOCUSATE SODIUM TAB PO SCH ×2 (08:41→23:41)
[2018-12-23] MEDS: POTASSIUM CL 10 MEQ TAB PO SCH (08:41)
[2018-12-23] MEDS: TEARS/DEXTRAN 70/HYPROMELLOSE 15 ML OPHT.BTL EACHEYE PRN (09:15)
--- NOTE | 2018-12-23 10:59 | ASMTCMCOM ---
CM Note CM Note Notes: Pts case discussed w/ TORI Potts. Pt will most likely require a SNF at time of d/c. CM met w/ pt and introduced self. CM provided pt w/ senior blue book. Pt would like his first choice to be [facility] [place] [facility]. Pts second choice is [facility] in [place]. Referrals sent. Non triggering pasrr completed. CM to follow. Plan: SNF Date Signed: 12/23/2018 10:58 AM Electronically Signed By:KAITLYNN Maldonado
--- NOTE | 2018-12-23 12:27 | HOSPPROG ---
Hospitalist Progress Note Assessment/Plan: William Mendez is a 73 yo who is POD #1: MV repair with #30 Physio ring, TV repair with #30 MC3 ring, Jiménez-Maze IV, CABGx2 (HDZ-ramus, SVG-D2), open SVG harvest RLE. DM 2, A1c 7.5% during this admission - Transitioned from Insulin gtt to sliding scale insulin on 12/21 - BG ranging 1128-160 over past 24 hours - Continue SSI, glucose checks - May restart Metformin if no contrasted studies planned per primary service MR, TR s/p repair with annuloplasty rings -ASA, Pradaxa CAD s/p CABGx2 - ASA, Coreg - Statin initiation per primary service Acute post-op blood loss anemia - Hgb stable this AM, continue to monitor Subjective: Pt reports no complaints this AM Objective: Vital Signs Temp Pulse Resp BP Pulse Ox 36.5 C 60 12 128/70 H 98 12/23/18 11:34 12/23/18 11:34 12/23/18 11:34 12/23/18 11:34 12/23/18 11:34 Laboratory Results 12/23/18 03:00 12/23/18 03:00 12/22/18 12/23/18 12/24/18 05:59 05:59 05:59 Intake Total 2990 830 240 Output Total 1183.5 2702 20 Balance 1806.5 -1872 220 - Physical Exam Constitutional: no apparent distress Eyes: PERRL Ears, Nose, Mouth, Throat: moist mucous membranes Cardiovascular: regular rate and rhythym, No edema Respiratory: no respiratory distress Gastrointestinal: soft, non-tender abdomen Skin: warm Musculoskeletal: full muscle strength Neurologic: AAOx3 Psychiatric: interacting appropriately ICD10 Worksheet Patient Problems: Problems Problem Status Onset Acute blood loss anemia Acute Atrial fibrillation Acute CAD (coronary artery disease) Acute Mitral regurgitation Acute S/P CABG x 2 Acute S/P ablation of atrial fibrillation Acute S/P tricuspid valve repair Acute Status post mitral valve annuloplasty Acute Tricuspid regurgitation Acute Iron deficiency anemia Acute
[2018-12-23] MEDS ORDERED: CANN-EASE 2 GM TUBE TP ONE (12:58)
[2018-12-23] MEDS: IRBESARTAN 75 MG TAB PO SCH (17:05)
[2018-12-23] MEDS: FERROUS SULFATE 325 MG TAB PO SCH (21:03)
[2018-12-23] MEDS: PRAVASTATIN SODIUM 40 MG TAB PO SCH (21:04)
[2018-12-23] MEDS: SOD BICARB PO SCH (21:06)
[2018-12-23] MEDS: CITRIC ACID PO SCH (21:06)
[2018-12-23] MEDS: ASPIRIN PO SCH (21:06)
--- NOTE | 2018-12-24 07:10 | SOAPPROG ---
SOAP Progress Note Assessment/Plan: Assessment: POD#4 MV repair #30 Physio ring, TVA#30 MC3 ring, Jiménez-Maze IV, CABGx2 (HDZ-ramus, SVG-D2), open vein harvest LLE LSPAF s/p Jiménez-Maze IV - Post-op paced and sinus rhythm - Left pleural tube and mediastinal tube out. - AF prophylaxis with Amiodarone/BB - Thromboprophylaxis as per pre-op with Pradaxa Moderate-severe MR with secondary TR s/p repairs with annuloplasty rings -Thromboprophylaxis as per CM IV CAD s/p CABGx2 - BB/ASA/statin for secondary prevention Acute post-op blood loss anemia - Stable without the need for transfusions - DVT prophylaxis w SCDs/Pradaxa h/o SSS s/p dual-chambered PPM implantation - Stable fx DM 2, A1c 7.5% - Insulin gtt transitioned to ISS - Pre-op Metformin as per hospitalist Right neck/left groin masses - To be addressed once recovered Plan: Cont amiodarone 200 mg BID Cont coreg 6.25 mg BID Cont Irbesartan 40 mg daily Cont lasix 40 mg daily Remove right pleural drain later today along with Vwires Baseline postop echo Cont inc activity as tolerated Wean O2 Dispo - Anticipate SNF tomorrow 12/24/18 07:07 Subjective: Doing ok. Improving stamina but still quite tired after walks. Objective: Vital Signs Temp Pulse Resp BP Pulse Ox 36.7 C 64 20 134/73 H 98 12/24/18 05:45 12/24/18 05:45 12/24/18 05:45 12/24/18 05:45 12/24/18 05:45 Laboratory Results 12/23/18 03:00 12/23/18 03:00 12/23/18 12/24/18 12/25/18 05:59 05:59 05:59 Intake Total 830 1380 Output Total 2702 380 160 Balance -1872 1000 -160 Paced. HR generally 60s SBP controlled Borderline suppl O2 req Adequate fluid balance. Approaching baseline wt CTOP nearing removal criteria. Pleurovac tipped and new baseline marked. Physical Exam - Physical Exam General Appearance: alert, no apparent distress Respiratory: crackles (bases), other (rt pleural lola to pleurovac, thin serosang drainage, no air leak) Cardiac/Chest: regular rate, rhythm (predom V and AV paced), other (Sternotomy CDI. Vwires intact.) Abdomen: non-tender, soft Skin: warm/dry Extremities: swelling (trace-1+ donor leg), other (left ankle venot CDI with thin eschar) ICD10 Worksheet Patient Problems: Problems Problem Status Onset Acute blood loss anemia Acute Atrial fibrillation Acute CAD (coronary artery disease) Acute Mitral regurgitation Acute S/P CABG x 2 Acute S/P ablation of atrial fibrillation Acute S/P tricuspid valve repair Acute Status post mitral valve annuloplasty Acute Tricuspid regurgitation Acute Iron deficiency anemia Acute
[2018-12-24] MEDS: INSULIN LISPRO 100 UNIT/ML SC SCH ×3 (07:42→18:14)
--- NOTE | 2018-12-24 08:29 | HOSPPROG ---
Hospitalist Progress Note Assessment/Plan: # DM2, A1c 7.5% - will restart metformin at home dose today with plans to uptitrate to 1000mg BID as outpatient over a few weeks - cont SSI while inpatient - recheck A1c in 3 months # CAD s/p CABG - asa/statin Subjective: reports he is recovering well; did not have N/V/D with metformin Objective: Vital Signs Temp Pulse Resp BP Pulse Ox 36.8 C 81 18 124/66 H 97 12/24/18 07:33 12/24/18 07:33 12/24/18 07:33 12/24/18 07:33 12/24/18 07:33 Laboratory Results 12/23/18 03:00 12/23/18 03:00 12/23/18 12/24/18 12/25/18 05:59 05:59 05:59 Intake Total 830 1380 Output Total 2702 380 160 Balance -1872 1000 -160 chart reviewed CXR personally reviewed - Physical Exam Constitutional: no apparent distress, other (lying in bed) Cardiovascular: regular rate and rhythym, no murmur, rub, or gallop, other ( stermotomy incision) Respiratory: no respiratory distress, no rales or rhonchi, No expiratory wheeze , No inspiratory crackles Gastrointestinal: soft, non-tender abdomen, no palpable masses, No guarding, No rebound, No distension ICD10 Worksheet Patient Problems: Problems Problem Status Onset Acute blood loss anemia Acute S/P ablation of atrial fibrillation Acute S/P tricuspid valve repair Acute Status post mitral valve annuloplasty Acute S/P CABG x 2 Acute CAD (coronary artery disease) Acute Atrial fibrillation Acute Tricuspid regurgitation Acute Mitral regurgitation Acute Iron deficiency anemia Acute
[2018-12-24] MEDS ORDERED: SENNOSIDES/DOCUSATE SODIUM TAB PO PRN (09:00)
[2018-12-24] MEDS: AMIODARONE HCL 200 MG TAB PO SCH ×2 (09:49→21:10)
[2018-12-24] MEDS: IRBESARTAN 75 MG TAB PO SCH (09:49)
[2018-12-24] MEDS: metFORMIN HCL 500 MG TAB PO SCH ×2 (09:49→18:43)
[2018-12-24] MEDS: CARVEDILOL 6.25 MG TAB PO SCH ×2 (09:49→18:43)
[2018-12-24] MEDS: OMEGA-3 FATTY ACIDS 1,000 MG CAP PO SCH (09:49)
[2018-12-24] MEDS: PANTOPRAZOLE SODIUM 40 MG TAB PO SCH ×2 (09:50→21:11)
[2018-12-24] MEDS: ASPIRIN 81 MG CHEWABLE TAB PO SCH (09:50)
[2018-12-24] MEDS: POTASSIUM CL 10 MEQ TAB PO SCH (09:50)
[2018-12-24] MEDS: FERROUS SULFATE 325 MG TAB PO SCH ×2 (09:50→21:11)
[2018-12-24] MEDS: DABIGATRAN ETEXILATE MESYL 150 MG CAP PO SCH ×2 (09:50→21:10)
[2018-12-24] MEDS: FUROSEMIDE 40 MG TAB PO SCH (09:50)
[2018-12-24] MEDS: TEARS/DEXTRAN 70/HYPROMELLOSE 15 ML OPHT.BTL EACHEYE PRN (09:54)
--- NOTE | 2018-12-24 12:21 | PDCONSULT ---
Biomathematician Note: CC: thyroid nodule, ipsilateral neck nodules and groin nodules HPI: Was asked by Dr Strickland to evaluate the patient as he has R sided thyroid nodule with concerning ipsilateral nodes. Patient also has palpable groin nodes with likely L superficial lipoma. States that he has had groin mass "for years" notes that he has intentionally lost over 40 pounds since diagnosis of DM. Recent US performed at [facility] just prior to open heart surgery reviewed. States that he has had R neck mass for 1.5 years, and that he did see his PCP for it and that they were unconcerned. It has been growing. States that he has been putting Vicks on it which makes him feel better. No voice changes, no swallowing issues. Currently recovering from multi-valve repair and CABG. PMH: DM, A-fib, CAD, HTN PSH: open prostatectomy, recent open heart last week. No head or neck radiation in past FHx: No FH of endocrine Ca. Social: previous heavy smoker and EtOH, stopped both 20-30 years ago Meds: reviewed Exam: neck: CVC in R IJ, has clear mass in R neck, R thyroid, no voice changes. No supraclav or axillary adenopathy. Abdomen: well-healed low vertical midline, has palpable shotty nodes in both groins, superficial mass in L superior thigh c/w poss lipoma Imaging outpatient US performed 12/19: 2 dominant R thyroid nodules 3.2 and 3.5cm. Also has 2 enlarged leveel 3 and 5 nodes concerning for metastatic disease A/P 73yo M s/p MVR, TVA, CABG last week with thyroid masses, ipsilateral adenopathy and palp groin nodes - Pt likely DC tomorrow - needs to FU with me in 2 weeks, contact infor provided - needs Bx of thyroid and nodes, will arrange with radiology as outpatient - findings worrisome for primary thyroid Ca, also has bilateral shotty groin papa enlargement? poss lymphoma, versus reactive, will biopsy if necessary
--- NOTE | 2018-12-24 13:43 | ASMTCMCOM ---
CM Note CM Note Notes: 12/24/2018 Case Management Note Faxed updated therapy notes to [facility] after confirming pt is agreeable to shared room. Notified Angelika in admissions [phone]. Requested auth. Case Management d/c poc: [facility] pending auth Case Management to follow. Date Signed: 12/24/2018 01:41 PM Electronically Signed By:Indiana Marie RN
[2018-12-24] MEDS: PRAVASTATIN SODIUM 40 MG TAB PO SCH (21:11)
[2018-12-24] MEDS: SOD BICARB PO SCH (21:12)
[2018-12-24] MEDS: CITRIC ACID PO SCH (21:12)
[2018-12-24] MEDS: ASPIRIN PO SCH (21:12)
[2018-12-25 07:41] VITALS: BP 124/66
[2018-12-25] MEDS: DABIGATRAN ETEXILATE MESYL 150 MG CAP PO SCH (08:13)
[2018-12-25] MEDS: ASPIRIN 81 MG CHEWABLE TAB PO SCH (08:13)
[2018-12-25] MEDS: CARVEDILOL 6.25 MG TAB PO SCH (08:13)
[2018-12-25] MEDS: FERROUS SULFATE 325 MG TAB PO SCH (08:13)
[2018-12-25] MEDS: IRBESARTAN 75 MG TAB PO SCH (08:14)
[2018-12-25] MEDS: metFORMIN HCL 500 MG TAB PO SCH (08:14)
[2018-12-25] MEDS: POTASSIUM CL 10 MEQ TAB PO SCH (08:14)
[2018-12-25] MEDS: PANTOPRAZOLE SODIUM 40 MG TAB PO SCH (08:14)
[2018-12-25] MEDS: AMIODARONE HCL 200 MG TAB PO SCH (08:14)
[2018-12-25] MEDS: FUROSEMIDE 40 MG TAB PO SCH (08:15)
[2018-12-25] MEDS: OMEGA-3 FATTY ACIDS 1,000 MG CAP PO SCH (08:17)
[2018-12-25] MEDS: INSULIN LISPRO 100 UNIT/ML SC SCH ×2 (08:20→13:25)
--- NOTE | 2018-12-25 08:40 | SOAPPROG ---
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 Forbes as outpatient Plan: TTE today then SNF (pending auth from [facility]) Subjective: Ready for SNF Objective: Vital Signs Temp Pulse Resp BP Pulse Ox 37.0 C 68 18 124/66 H 96 12/25/18 07:40 12/25/18 07:40 12/25/18 07:40 12/25/18 07:40 12/25/18 07:40 Laboratory Results 12/25/18 05:15 12/25/18 05:15 12/24/18 12/25/18 12/26/18 05:59 05:59 05:59 Intake Total 1380 1590 Output Total 380 2485 Balance 1000 -895 - Physical Exam General Appearance: alert, no apparent distress Respiratory: crackles (bases) Cardiac/Chest: regular rate, rhythm (predom V and AV paced), other (Sternotomy CDI. ) Abdomen: non-tender, soft Skin: warm/dry Extremities: swelling (trace-1+ donor leg), other (left ankle venot CDI with thin eschar) ICD10 Worksheet Patient Problems: Problems Problem Status Onset Acute blood loss anemia Acute Atrial fibrillation Acute CAD (coronary artery disease) Acute Mitral regurgitation Acute S/P CABG x 2 Acute S/P ablation of atrial fibrillation Acute S/P tricuspid valve repair Acute Status post mitral valve annuloplasty Acute Tricuspid regurgitation Acute Iron deficiency anemia Acute
--- NOTE | 2018-12-25 09:25 | HOSPPROG ---
Hospitalist Progress Note Assessment/Plan: # DM2, A1c 7.5% - metformin restarted, uptitrate over two weeks to 1000mg BID - cont SSI while inpatient - recheck A1c in 3 months # CAD s/p CABG - asa/statin Subjective: no issues with metformin; we discussed diet Objective: Vital Signs Temp Pulse Resp BP Pulse Ox 37.0 C 68 18 124/66 H 96 12/25/18 07:40 12/25/18 07:40 12/25/18 07:40 12/25/18 07:40 12/25/18 07:40 Laboratory Results 12/25/18 05:15 12/25/18 05:15 12/24/18 12/25/18 12/26/18 05:59 05:59 05:59 Intake Total 1380 1590 Output Total 380 2485 Balance 1000 -895 - Physical Exam Constitutional: appears nourished Eyes: anicteric sclera Ears, Nose, Mouth, Throat: hearing normal Cardiovascular: No edema Respiratory: no respiratory distress Gastrointestinal: No distension Genitourinary: No cardoso in urethra Skin: warm Musculoskeletal: full muscle strength Neurologic: AAOx3 Psychiatric: not anxious ICD10 Worksheet Patient Problems: Problems Problem Status Onset Acute blood loss anemia Acute S/P ablation of atrial fibrillation Acute S/P tricuspid valve repair Acute Status post mitral valve annuloplasty Acute S/P CABG x 2 Acute CAD (coronary artery disease) Acute Atrial fibrillation Acute Tricuspid regurgitation Acute Mitral regurgitation Acute Iron deficiency anemia Acute
--- NOTE | 2018-12-25 09:42 | PDDCSUM ---
Discharge Summary Discharge Summary: DATE OF ADMISSION: 12/20/18 DATE OF DISCHARGE: 12/25/18 DISPOSITION: SNF - [facility] ACTIVITY: Instructed on sternal precautions, activity restrictions, and problems to call [place]. ADMISSION DIAGNOSES: [id number] mitral valve regurgitation Tricuspid valve regurgitation Longstanding persistent atrial fibrillation Coronary artery disease History of PPM for sick sinus syndrome Type 2 diabetes mellitus DISCHARGE DIAGNOSES: As above, plus Acute post-op blood loss anemia Right neck/left groin mass of unknown etiology PROCEDURES PERFORMED: 12/20/18 (Marco A) MVRepair with #30 Physio II annuloplasty ring, CABGx2 (HDZ- ramus, SVG-D2) w open LLE harvest, TVRepair with #32 Padron annuloplasty ring, CM4 w radiofrequency/cryoablation sensing and testing. 12/25/18 Routine Post-op TTE HISTORY OF PRESENT ILLNESS: This is a pleasant 73M LSPAF, multivalve disease, and CAD admitted for elective cardiac surgery. HOSPITAL COURSE BY PROBLEM LIST: LSPAF s/p Jiménez-Maze IV w history of SSS with PPM - Post-op paced and sinus rhythm. Atrial fibrillation prophylaxis with Amiodarone/BB. Thromboprophylaxis as per pre-op with Pradaxa. Moderate-severe MR with secondary TR s/p repairs with annuloplasty rings - Pre- op EF 50% with mild global hypokinesis. Amenable to repair. Thromboprophylaxis as per CM IV Coronary artery disease s/p CABGx2 - Open vein harvest in the left lower extremity. BB/ASA/statin for secondary prevention. Acute post-op blood loss anemia - Stable without the need for transfusions. Type 2 DM - pre-op A1c 7.5%. Insulin gtt transitioned to ISS. Per hospital medicine recommendation, uptitrate Metformin to 1000 mg PO BID over two weeks. Right neck/left groin masses - Plan to see Dr. Forbes as outpatient. PERTINENT DISCHARGE CLINICAL INFORMATION: Sternotomy CDI, stable LLE open vein harvest CDI, no erythema Paced HR 68 BP 124/66 SpO2 96% 1L preop wt kg 86, discharge wt 87 kg WBC 10.15 Hgb 11.3 Hct 34.7 Plt 96 Na 137 K 4.3 Cr 0.8 CONSULTANTS: B[facility], Hospital Medicine MEDICATIONS ON ADMISSION: Reviewed in [facility]Control ALLERGIES/SENSITIVITIES: NKDA DISCHARGE MEDICATIONS: CONTINUE these medications: Protonix, Fish Oil, Metformin 500 mg PO BID*, Pravachol, Pradaxa, Ferrous *per hospital medicine recommendation - Uptitrate Metformin to 1000 mg PO BID over two weeks STOP these medications: Coreg 12.5 mg PO BID (dose decreased), Avapro 150 mg PO daily (dose decreased), Nifedipine ER NEW medications: Tylenol, Amiodarone 200 mg PO BID, ASA 81, Coreg 6.25 mg PO BID , Lasix 40 mg PO daily, Klor-Con 10 mEq daily, Avapro 75 mg PO daily, Tramadol FOLLOW UP APPOINTMENTS: 1. CV surgery, Dr. Strickland, as directed 2. Cardiology, Dr. Ovalles, as directed 3. General surgery, Dr. Forbes, as directed 4. PCP, Dr. Garcia, as directed FOLLOW UP TESTING: CXR prior to surgical appointment
--- NOTE | 2018-12-25 10:03 | PDIAF ---
- Diagnosis Diagnosis: s/p MVRepair, TVA, Jiménez-Maze IV, CABGx2 w open vein harvest Code Status: Full Code - Medication Management Additional Medication Instructions: Uptitrate metformin over two weeks to 1000mg BID. FSBG ACHS or per protocol Discharge Medications: electronically signed and located in the Home Medication List. PICC Care - Routine: N/A - Orders Services needed: Registered Nurse, Certified Respiratory Medicine Physician, Physical Therapy, Occupational Therapy Isolation Type: None Oxygen: PRN SpO2 <90% Diet Recommendation: ADA 2000 consistent carb Diet Texture: Regular Texture Diet, Thin Liquids, Meds Whole w/Liquids Weigh Patient: daily Pham: Not applicable Wound Care Instructions: see additional instructions Activity/Weight Bearing Restrictions: see additional instructions Additional Instructions: CARDIAC SURGERY DISCHARGE INSTRUCTIONS Cardiac Rehabilitation Call [facility] cardiac rehab to enroll in phase 2 classes once released from rehab. Target oxygen saturation > 89%. Adjustments per cardiac rehab. Activity Restrictions Sternal precautions x 4 weeks. Avoid lifting > 10lbs with an outstretched arm. Avoid push/pull activities. No driving for 2 weeks or until cleared by surgery. Avoid prolonged standing or dangling. Elevate legs at rest. Wound Care Cleanse wounds once daily with soap and water. Avoid underwater immersion (pool, hot tub, bath) until scabs off. It is okay to leave all wounds open to air. Avoid creams or ointments until scabs off. Please log daily vital signs and bring to your next clinic visit Daily weight Resting heart rate over 1 minute Blood pressure Laboratory results (if drawn) When to Call [facility] gain > 5lbs or worsening leg swelling. Resting heart rate <60 or >120. Systolic blood pressure consistently <90 or >160. Please obtain a chest xray prior to surgical appointment. Use requisition form attached to appointment card. Chest x-rays don't require an appointment. Go to the Emergency Room entrance at the [facility] location. Sign in at the computer kiosk in the entryway. You will be given a number & may sit in the waiting area until called. You will be registered and directed to Imaging on the 1st floor. This process can take up to an hour. Please allow at least 30 min before your appt to get x-ray taken. Additional Information You may use koix-qqh-ymqtadn medications for iron supplementation, bowel function or pain. You may use Tylenol 500-650 mg with meals and before bed. Max daily dose of Tylenol 3000 mg. Avoid nonsteroidal anti-inflammatories (ie. Ibuprofen, advil, motrin, aleve) x 3 months for interference with beneficial effects of aspirin on graft flow. Lifelong antibiotic prophylaxis prior to dental, respiratory tract, or skin/ soft tissue procedures. - Labs/Radiology Imaging Orders: pre-clinic CXR; please arrive at 10:15AM to [facility] ED Call or Fax Lab and Imaging Results to: attn: Gosia Dumont RN [facility].Please bring vitals/labs to next week appt - Follow Up Care Current Providers and Referrals: Dima Garcia [Primary Care Provider] - Paul Strickland DO [Doctor of Osteopathy] - 12/31/18 11:15 am Sid Forbes MD [Medical Doctor] - follow up in 2 weeks (Please call the office to make an appointment )
--- NOTE | 2018-12-25 10:16 | ASMTLACE ---
LACE Length of stay for Answers: 4-6 days current admission Acuity / Level of Answers: Yes Care: Did the patient have an inpatient admission? Comorbidities - select Answers: Congestive heart failure all that apply Coronary Artery Disease Diabetes (uncontrolled or controlled) Other Notes: HTN; AFIb # of Emergency department Answers: 0 visits in the last 6 months Score: 13 Date Signed: 12/25/2018 10:15 AM Electronically Signed By:Indiana Marie RN
--- NOTE | 2018-12-25 10:34 | ASMTDCNOTE ---
Case Management Discharge Discharge Order Complete? Answers: Yes Patient to Obtain Answers: Other Notes: [facility] Medications Transportation Arranged Answers: Other Notes: trasnport arranged by Kathy at [facility] Transport will Pick (Date 12/25/2018 01:30 PM & Time) Faxed Final Orders Answers: Yes Notes: [facility] Agency/Facility Transfer Answers: Yes Notes: [facility] Report Printed & Faxed to Receiving Agency Discharge Comments Notes: 12/25/2018 Case Management Note Faxed final orders to [facility]. Confirmed on phone. W/C with O2 transport arranged by [facility]. RN called report. Case Management d/c poc: [facility]. Date Signed: 12/25/2018 10:33 AM Electronically Signed By:Indiana Marie RN
--- NOTE | 2018-12-25 10:36 | ASDISCHSUM ---
Discharge Information Plan Status:SNF Medically Cleared to Leave:12/25/2018 Discharge Date:12/25/2018 CM D/C Disposition:[facility]ior Care Facility ADT D/C Disposition:Senior Care Facility Projected Discharge Date:12/24/2018 11:00 AM Transportation at D/C:Wheelchair Van Discharge Delay Reason: Follow-Up Date:12/24/2018 11:00 AM Discharge Slot: Final Diagnosis: Placement Information Referral Type:*Home Health Care Services Referral ID:[id number] Provider Name: Address 1: Phone Number: Address 2: Fax Number: City: Selection Factors: State: Referral Type:*Custodial/SNF Referral ID:[id number] Provider Name:[facility]//[facility] Address 1:[address] Address 2: City:[place] Selection Factors: State:[place] Patient Contact Information Contact Name:EFREN Relationship: Address:[address] Work Phone: City:[place] Alternate Phone: State/Zip Code:[place] [address] Email: Financial Information Financial Class:Medicare Advantage Plans Primary Plan Desc:RAFAELA RILEY PPO MEDICARE Primary Plan Number:[id number] Secondary Plan Desc: Secondary Plan Number: Assessment Information LACE LACE Length of stay for Answers: 4-6 days current admission Acuity / Level of Answers: Yes Care: Did the patient have an inpatient admission? Comorbidities - select Answers: Congestive heart failure all that apply Coronary Artery Disease Diabetes (uncontrolled or controlled) Other Notes: HTN; AFIb # of Emergency department Answers: 0 visits in the last 6 months Score: 13 Date Signed: 12/25/2018 10:15 AM Electronically Signed By:Indiana Marie RN [facility] Progress Note CM Note CM Note Notes: CM spoke with pt and RN in the room. Pt admitted for open heart surgery and transferred to PCU from ICU today. Pt lives independently with Maria E. PT and OT are recommending [facility] and pt is agreeable. Pt's address and phone number confirmed and pt has PCP. [facility] sent referral. [facility] Intake to review on Sunday. Discharge date TBD. CM to follow. D/C Plan: [facility] Date Signed: 12/22/2018 03:10 PM Electronically Signed By:Madeleine Mistry [facility] Progress Note CM Note CM Note Notes: Pts case discussed w/ TORI Potts. Pt will most likely require a SNF at time of d/c. CM met w/ pt and introduced self. CM provided pt w/ senior blue book. Pt would like his first choice to be [facility]. Pts second choice is [facility] in [place]. Referrals sent. Non triggering pasrr completed. CM to follow. Plan: SNF Date Signed: 12/23/2018 10:58 AM Electronically Signed By:KAITLYNN Maldonado [facility] Progress Note SUZAN Note SUZAN Note Notes: 12/24/2018 Case Management Note Faxed updated therapy notes to [facility] after confirming pt is agreeable to shared room. Notified Angelika in admissions [phone]. Requested auth. Case Management d/c poc: [facility] [place] pending auth Case Management to follow. Date Signed: 12/24/2018 01:41 PM Electronically Signed By:Indiana Marie RN Case Management Discharge Plan Note Case Management Discharge Discharge Order Complete? Answers: Yes Patient to Obtain Answers: Other Notes: [facility] [place] Medications Transportation Arranged Answers: Other Notes: trasnport arranged by Kathy at [facility] Transport will Pick (Date 12/25/2018 01:30 PM & Time) Faxed Final Orders Answers: Yes Notes: [facility] [place] Agency/Facility Transfer Answers: Yes Notes: [facility] [place] Report Printed & Faxed to Receiving Agency Discharge Comments Notes: 12/25/2018 Case Management Note Faxed final orders to [facility]. Confirmed on phone. W/C with O2 transport arranged by [facility]. RN called report. Case Management d/c poc: [facility] [place]. Date Signed: 12/25/2018 10:33 AM Electronically Signed By:Indiana Marie RN Intervention Information
--- NOTE | 2018-12-25 14:08 | ECHO ---
[email or web address] [address] [address] Main: [phone] Echocardiography Examination Transthoracic Name: FLAKO AYERS MR#: [id number] Study Date: 12/25/2018 Study Time: 01:07 PM Date of : 1945 Age: 73 year(s) Height: 185.4 cm (73 in.) Weight: 89.81 kg (198 lb.) BSA: 2.14 m2 Gender: Male Examination: Echo Contrast: Image Quality: Rhythm: Heart Rate: BP: 124 mmHg/66 mmHg Indication: Post OP, MV repair #30 Physio ring, TV repair #30 MC3 ring Procedure Staff Referring Physician: Marketing Recruiter: Marshall Whitten RDCS Reading Physician: Thalia Youssef MD Requesting Provider: Ordering Physician: Paul Strickland DO Indication: Post OP, MV repair #30 Physio ring, TV repair #30 MC3 ring Measurements Chambers AV/MV Label Value Normal Value Label Value Normal Value LVOT Vmax 0.87 m/s (0.7m/s - 1.1m/s) AV PGmax 8 mmHg LVOTd 2 cm (1.9cm - 2.1cm) AV PGmean 5 mmHg LVOT VTI 17.2 cm (18cm - 22cm) AV Vmax 1.44 m/s LVDd, 2D 4.8 cm (4.2cm - 5.9cm) JOHN (Vmax) 1.9 cm2 LVDs, 2D 3.6 cm (2.1cm - 4cm) JOHN (VTI) 1.8 cm2 IVSd, 2D 0.9 cm (0.6cm - 1.1cm) MV E Vmax 1.44 m/s LVPWd, 2D 1.1 cm (0.6cm - 1cm) MV DT 380 ms LVEF, BP 50 % (55% - 70%) MV VTI 52 cm LVEF, 2D 52 % (54% - 74%) MVA D (continuity eq.) 1 cm2 LVOT PGmean 2 mmHg MV PGmax 16 mmHg LVOT Vmean 0.63 m/s MV PGmean 6 mmHg LA Volume, BP 109 ml (18ml - 58ml) MV PHT 0.09 s LADs, 2D 5.8 cm (3cm - 4cm) MVA PHT 2.5 cm2 LAESV index, BP 50.9 ml/m2 MV PHT 89 ms RA Area 19.1 cm2 TV/PV Additional Vessels Label Value Normal Value Label Value Normal Value TV PGmax 8 mmHg AoRoot, MM 3.3 cm (2.2cm - 3.7cm) TV PGmean 2 mmHg TV Vmax 1.38 m/s (0.3m/s - 0.7m/s) Patient: FLAKO AYERS Study Date: 12/25/2018 Page 1 of 2 01:07 PM TV Vmax, Caliper 1.38 m/s (0.3m/s - 0.7m/s) TV Vmean 0.68 m/s TV VTI 40.6 cm PV PGmax 3 mmHg PV Vmax, Caliper 0.88 m/s (0.6m/s - 0.9m/s) Conclusions 1. The left ventricle is normal in size. Ejection fraction is low normal. EF is approximately 50%. There is paradoxical septal motion consistent with paced rhythm and/or previous cardiac surgery 2. The right ventricle is normal in size and systolic function. Pacer lead seen. 3. The left atrium is severely dilated. 4. The mitral valve is status post repair. No significant regurgitation. Mean transmitral gradient is 6 mm of mercury. 5. The tricuspid valve is status post repair. Mean transvalvular gradient is 2 mm of mercury. No tricuspid regurgitation. 6. No pericardial effusion. 7. Compared with MCKAYLA dated 11/21/2018 the mitral and tricuspid valves have been repaired Findings Left Ventricle: Left ventricle is normal in size. Normal global systolic left ventricular function. The EF is visually estimated to be 50 %. EF range is estimated at 45 % - 50 %. Left ventricle wall thickness is normal. There is paradoxic septal motion suggestive of bundle branch block, paced cardiac rhythm, or prior cardiac surgery. Right Ventricle: Pacer lead seen in the right ventricle. Normal size right ventricle. Right ventricular systolic function is normal. Left Atrium: The left atrium is severely dilated. Mitral Valve: There is a mitral valve repair with a #30 Physio ring. There is no significant mitral regurgitation. Mean transmitral gradient is 6 mm of mercury. Aortic Valve: No significant aortic valve regurgitation. There is no aortic stenosis. The aortic valve is trileaflet. Tricuspid Valve: There is a #30 MC3 ring in the tricuspid valve position. There is no significant tricuspid regurgitation or stenosis.. No significant tricuspid regurgitation. Pulmonic Valve: Pulmonic leaflets are normal in appearance and function. No pulmonic valve regurgitation is evident. Aorta: The aorta is normal. The aortic root size in M-mode measures 3.3 cm. Aorta Measurements AoRoot, MM is 3.3 cm. Pericardium: No pericardial effusion. Exam Details Procedure Ordered: Echo (No Signature Object) Patient: FLAKO AYERS Study Date: 12/25/2018 Page 2 of 2 01:07 PM [id number]
== END 2018-12-25 13:50 | DRG 220 ==
LOC: FSGY 05:33 → F2N 10:38 → F2W 12-22 10:34
PROVIDERS: ADMIT Thoracic Surgery (Cardiothoracic Vascular Surgery); ATTEND Thoracic Surgery (Cardiothoracic Vascular Surgery)
PROC: 5A1221Z Performance of Cardiac Output, Continuous (ICD-10-PCS; principal; 2018-12-20 07:15)
PROC: 06BQ0ZZ Excision of Left Saphenous Vein, Open Approach (ICD-10-PCS; principal; 2018-12-20 07:15)
PROC: 02UJ0JZ Supplement Tricuspid Valve with Synthetic Substitute, Open Approach (ICD-10-PCS; principal; 2018-12-20 07:15)
PROC: 02580ZZ Destruction of Conduction Mechanism, Open Approach (ICD-10-PCS; principal; 2018-12-20 07:15)
PROC: 02UG0JZ Supplement Mitral Valve with Synthetic Substitute, Open Approach (ICD-10-PCS; principal; 2018-12-20 07:15)
PROC: 02100Z9 Bypass Coronary Artery, One Artery from Left Internal Mammary, Open Approach (ICD-10-PCS; principal; 2018-12-20 07:15)
PROC: 021009W Bypass Coronary Artery, One Artery from Aorta with Autologous Venous Tissue, Open Approach (ICD-10-PCS; principal; 2018-12-20 07:15)
DX: I34.0 Nonrheumatic mitral (valve) insufficiency (principal); D62 Acute posthemorrhagic anemia; I48.1 Persistent atrial fibrillation; I42.9 Cardiomyopathy, unspecified; I36.1 Nonrheumatic tricuspid (valve) insufficiency; I25.10 Atherosclerotic heart disease of native coronary artery without angina pectoris; E11.9 Type 2 diabetes mellitus without complications; I10 Essential (primary) hypertension; E78.5 Hyperlipidemia, unspecified; G47.33 Obstructive sleep apnea (adult) (pediatric); Z87.891 Personal history of nicotine dependence; Z85.46 Personal history of malignant neoplasm of prostate; Z95.0 Presence of cardiac pacemaker
CPT/HCPCS: 82435-PO; 82565-PO; 82947-PO; 84132-PO; 84295-PO; 84520-PO; 85014-ER; 97110-GP; 97116-GP; 97161-GP; 97165-GO; 97530-GO; 97530-GP; 97535-GO; J0153; J0282; J0690; J1265; J1644; J1815; J1940; J2001; J2150; J2260; J2270; J2370; J2405; J2440; J2704; J2720; J2765; J2930; J3010; J3475; J3480; P9041

== ENCOUNTER → 2018-12-31 | Outpatient (CLI) | payer OTHER | LOC: FIMAGING 10:22 | PROVIDERS: ATTEND Thoracic Surgery (Cardiothoracic Vascular Surgery) | DX: Z48.89 Encounter for other specified surgical aftercare (principal); J90 Pleural effusion, not elsewhere classified; J98.11 Atelectasis; J98.4 Other disorders of lung; Z95.0 Presence of cardiac pacemaker ==

== ENCOUNTER 2019-01-31 07:40 | Day surgery (SDC) | payer OTHER | END 2019-01-31 08:21 | disposition home or self-care (01) | LOC: FCATH 07:40 ==